=== PATIENT | male | born 1970 | race Caucasian/White ===

== ENCOUNTER 2016-06-30 06:06 | Inpatient (IN) | payer MEDICARE, OTHER ==
[2016-06-30] VITALS (24 sets, daily range): BP systolic 126–238; BP diastolic 64–133; PULSE 60–87; RESP 16–20; TEMP 97.8–98; O2SAT 79–100
[~2016-06-30 06:06] MED LIST: ASPI81TA82 PO; CARD4TAB2 PO; DAPS100 PO; GABA300C3 PO; HYDR10TA23 PO; METO100T PO; MYCO360 PO; PRED5SOL PO; PROT40TA PO; REQU3TAB PO; SIMV10 PO; SIRO1 PO; VITATAB25 PO
[2016-06-30] MEDS ORDERED: ETOMIDATE 40 MG/20 ML VIAL ONE (06:08)
[2016-06-30] MEDS ORDERED: NITROGLYCERIN-DEXTROSE INJ 250 ML ONE (06:16)
[2016-06-30] MEDS ORDERED: PROPOFOL 1000 MG/100 ML INJ 100 ML ONE (06:20)
[2016-06-30] MEDS ORDERED: PROPOFOL 1000 MG/100 ML INJ 100 ML IV SCH ×2 (06:30→11:00)
[2016-06-30] MEDS ORDERED: ETOMIDATE 40 MG/20 ML VIAL IV PUSH ONE (06:30)
[2016-06-30] MEDS ORDERED: ROCURONIUM INJ 100 MG/10 ML VIAL IV ONE (06:30)
[2016-06-30] MEDS ORDERED: SODIUM CHLORIDE 0.9% FLUSH 5 ML FLUSH IVF PRN ×3 (06:30→11:00)
[2016-06-30] MEDS ORDERED: NITROGLYCERIN-DEXTROSE INJ 250 ML IV SCH (06:30)
[2016-06-30 06:52] LABS: AUTOMATED NEUTROPHIL # 10.4 TH/MM3 (1.8-7.7); BASOPHIL % 0.2 % (0.0-2.0); EOSINOPHIL % 7.6 % (0.0-4.0); HEMATOCRIT 29.8 % (39.0-51.0); HEMO FLAGS DIFF FINAL; LYMPH % 6.6 % (9.0-44.0); LYMPHOCYTE # 0.9 TH/MM3 (1.0-4.8); MEAN CELL VOLUME 93.3 FL (80.0-100.0); MEAN CORPUSCULAR HEMOGLOBIN 29.1 PG (27.0-34.0); MEAN CORPUSCULAR HGB CONC 31.2 % (32.0-36.0); MONO % 6.3 % (0.0-8.0); NEUT % 79.3 % (16.0-70.0); PLATELET COUNT 354 TH/MM3 (150-450); RED BLOOD COUNT 3.19 MIL/MM3 (4.50-5.90); RED CELL DISTRIBUTION WIDTH 18.8 % (11.6-17.2); WHITE BLOOD COUNT 13.1 TH/MM3 (4.0-11.0)
[2016-06-30 06:53] LABS: BLOOD GAS BASE EXCESS -9.8 mmol/L (-2-2); BLOOD GAS CARBOXYHEMOGLOBIN 2.9 % (0-4); BLOOD GAS HCO3 18 mmol/L (22-26); BLOOD GAS METHEMOGLOBIN 1.8 % (0-2); BLOOD GAS O2 HGB SATURATION 92 % (90-100); BLOOD GAS OXYGEN CONTENT 12.8 Vol % (12.0-20.0); BLOOD GAS PCO2 54 mmHg (38-42); BLOOD GAS PO2 135 mmHG (61-120); BLOOD GAS TOTAL HGB 9.7 G/DL (12.0-16.0); TEMP CORR TO 98.6
[2016-06-30 06:54] LABS: CRITICAL VALUE YES; DRAW SITE RT FEMORAL; FIO2 100 %; NUMBER OF ARTERIAL PUNCTURES 1; OXYGEN DEVICE VENTILATOR; STAT YES; VENT SETTINGS A/C18/550 8 PEEP
[2016-06-30 07:00] LABS: INTERNATIONAL NORMALIZED RATIO 1.1 RATIO; PROTHROMBIN TIME - PATIENT 11.8 SEC (9.8-11.6)
--- NOTE | 2016-06-30 07:10 | PD ---
HPI Chief Complaint: Respiratory Distress Time Seen by Provider: 06:21 Travel History International Travel<30 days: No Contact w/Intl Traveler<30days: No Traveled to known affect area: No History of Present Illness HPI 46-year-old male came in with severe respiratory distress. Patient is status post renal transplant from hospital in [place]. When EMS arrived patient was in severe respiratory distress saturating in the low 80s. He was put on nonrebreather that improved his saturation for a little bit till his ventilation started to worsen and they put him on BiPAP. By the time patient arrived in the ER he was poorly responsive and labored breathing. Blood pressure was 230/115. He had received sublingual nitroglycerin 1 by EMS. [facility] Past Medical History Narrative Medical List of his past medical history reviewed from the nursing note. Arthritis: Yes Asthma: No Autoimmune Disease: No Anxiety: No Depression: No Heart Rhythm Problems: No Cancer: No Cardiovascular Problems: Yes Chest Pain: Yes Congestive Heart Failure: No COPD: No Cerebrovascular Accident: No Diabetes: Yes (HX OF, BEFORE PANCREATIC TRANSPLANT IN September,) Patient Takes Glucophage: No Diminished Hearing: No Endocrine: No Gastrointestinal Disorders: Yes (REFLUX) GERD: Yes Genitourinary: No Headaches: Yes (NOT OFTEN) Hepatitis: No Hiatal Hernia: No Hypertension: Yes Immune Disorder: No Kidney Stones: No Musculoskeletal: Yes (RESTLESS LEG SYNDROME) Neurologic: No Psychiatric: No Reproductive: Yes (LOW TESTOSTERONE) Respiratory: No Immunizations Current: No Migraines: No Renal Failure: Yes (HX OF; KIDNEY TRANSPLANT IN September,) Seizures: No Sleep Apnea: No Thyroid Disease: No Ulcer: No Tetanus Vaccination: < 5 Years Influenza Vaccination: Yes Past Surgical History Abdominal Surgery: Yes (PANCREAS TRANSPLANT, KIDNEY TRANSPLANT) AICD: No Body Medical Devices: PERITONEAL DIALYSIS CATHETER Joint Replacement: No Pacemaker: No Thoracic Surgery: Yes (PERITONEAL DIALYSIS CATHETER; FISTULA RT ARM) Other Surgery: Yes (TUBE PLACEMENT FOR PERITITONEAL DIALYSIS) Social History Alcohol Use: No Tobacco Use: Yes (1/2 PPD) Substance Use: No Allergies-Medications (Allergen,Severity, Reaction): Coded Allergies: No Known Allergies (Unverified , 08/01/15) Comments No known drug allergies. Reported Meds & Prescriptions Reported Meds & Active Scripts Active Reported Requip (Ropinirole) 3 Mg Tab 9 Mg PO HS Renagel (Sevelamer HCl) 800 Mg Tab 800 Mg PO TID Drisdol (Ergocalciferol) 50,000 Unit Cap 50,000 Units PO Q7D Dapsone 100 Mg Tab 100 Mg PO WEEKLY Cardura (Doxazosin Mesylate) 4 Mg Tab 4 Mg PO BID Gabapentin 300 Mg Cap 300 Mg PO HS Hydralazine (Hydralazine HCl) 100 Mg Tab 100 Mg PO TID Take with meals Metoprolol Tartrate 100 Mg Tab 100 Mg PO BID Myfortic (Mycophenolate Sodium) 360 Mg Tab 360 Mg PO BID Pantoprazole (Pantoprazole Sodium) 40 Mg Tab 40 Mg PO DAILY Prednisone 5 Mg Tab 5 Mg PO DAILY @ 0800 Zocor (Simvastatin) 10 Mg Tab 10 Mg PO HS Prograf (Tacrolimus) 1 Mg Cap 3 Mg PO DAILY @ 2000 Prograf (Tacrolimus) 1 Mg Cap 2 Mg PO DAILY @ 0800 Valganciclovir 450 Mg Tab 450 Mg PO MOWEFR Tylenol-Codeine #3 (Acetaminophen-Codeine) 300-30 mg Tab 1-2 Tab PO Q4-6H PRN Clonidine (Clonidine HCl) 0.3 Mg Tab 0.3 Mg PO BID Narrative Medication List of his home medications reviewed from the nursing note. Review of Systems Except as stated in HPI: all other systems reviewed are Neg Physical Exam Narrative GENERAL: Poorly responsive, severe respiratory distress SKIN: Warm and dry. HEAD: Atraumatic. Normocephalic. EYES: Pupils equal and round. No scleral icterus. No injection or drainage. ENT: No nasal bleeding or discharge. Mucous membranes pink and moist. NECK: Trachea midline. Positive JVD. CARDIOVASCULAR: Regular rate and rhythm. No murmur appreciated. RESPIRATORY: Severe respiratory distress, accessory muscles used, decreased air entry bilaterally GASTROINTESTINAL: Abdomen soft, non-tender, nondistended. Hepatic and splenic margins not palpable. MUSCULOSKELETAL: No obvious deformities. No clubbing. No cyanosis. No edema. NEUROLOGICAL: Poorly responsive. No obvious cranial nerve deficits. Motor grossly within normal limits. Normal speech. PSYCHIATRIC: Unable to assess Data Data Last Documented VS Vital Signs Date Time Temp Pulse Resp B/P Pulse Ox O2 Delivery O2 Flow Rate FiO2 06/30/16 08:17 64 18 191/92 100 Ventilator 80 06/30/16 06:41 97.9 Orders Etomidate Inj (Amidate Inj) (06/30/16 06:08) Nitroglycerin-Dextrose Inj (Nitroglyceri (06/30/16 06:16) Propofol 1000 Mg/100 Ml Inj (Diprivan 10 (06/30/16 06:20) Electrocardiogram (06/30/16 06:21) Complete Blood Count With Diff (06/30/16 06:21) Comprehensive Metabolic Panel (06/30/16 06:21) Creatine Kinase (Cpk) (06/30/16 06:21) Prothrombin Time / Inr (Pt) (06/30/16 06:21) Troponin I (06/30/16 06:21) Urinalysis - C+S If Indicated (06/30/16 06:21) Arterial Blood Gas (Abg) (06/30/16 06:21) Chest, Single Ap (06/30/16 06:21) Ct Brain W/O Iv Contrast(Rout) (06/30/16 06:21) Blood Glucose (06/30/16 06:21) Ecg Monitoring (06/30/16 06:21) Iv Access Insert/Monitor (06/30/16 06:21) Oximetry (06/30/16 06:21) Sodium Chloride 0.9% Flush (Ns Flush) (06/30/16 06:30) B-Type Natriuretic Peptide (06/30/16 06:21) Rocuronium Inj (Zemuron Inj) (06/30/16 06:30) Etomidate Inj (Amidate Inj) (06/30/16 06:30) Propofol 1000 Mg/100 Ml Inj (Diprivan 10 (06/30/16 06:30) ^ Infusion (06/30/16 06:21) RASS (06/30/16 06:21) Neurological Rass Scale ZAYNAB.Q2H (06/30/16 06:21) Nitroglycerin-Dextrose Inj (Nitroglyceri (06/30/16 06:30) Sodium Chlor 0.9% 1000 Ml Inj (Ns 1000 M (06/30/16 07:21) Type And Screen (06/30/16 06:21) Lactic Acid (06/30/16 08:23) Admit Order (Ed Use Only) (06/30/16 08:30) Labs Laboratory Tests Test 06/30/16 06/30/16 06:39 06:45 White Blood Count 13.1 TH/MM3 Red Blood Count 3.19 MIL/MM3 Hemoglobin 9.3 GM/DL Hematocrit 29.8 % Mean Corpuscular Volume 93.3 FL Mean Corpuscular Hemoglobin 29.1 PG Mean Corpuscular Hemoglobin 31.2 % Concent Red Cell Distribution Width 18.8 % Platelet Count 354 TH/MM3 Mean Platelet Volume 9.0 FL Neutrophils (%) (Auto) 79.3 % Lymphocytes (%) (Auto) 6.6 % Monocytes (%) (Auto) 6.3 % Eosinophils (%) (Auto) 7.6 % Basophils (%) (Auto) 0.2 % Neutrophils # (Auto) 10.4 TH/MM3 Lymphocytes # (Auto) 0.9 TH/MM3 Monocytes # (Auto) 0.8 TH/MM3 Eosinophils # (Auto) 1.0 TH/MM3 Basophils # (Auto) 0.0 TH/MM3 CBC Comment DIFF FINAL Differential Comment Prothrombin Time 11.8 SEC Prothromb Time International 1.1 RATIO Ratio Sodium Level 142 MEQ/L Potassium Level 5.4 MEQ/L Chloride Level 111 MEQ/L Carbon Dioxide Level 15.1 MEQ/L Anion Gap 16 MEQ/L Blood Urea Nitrogen 53 MG/DL Creatinine 7.36 MG/DL Estimat Glomerular Filtration 8 ML/MIN Rate Random Glucose 138 MG/DL Calcium Level 6.9 MG/DL Protein Corrected Calcium 7.6 MG/DL Total Bilirubin 0.4 MG/DL Aspartate Amino Transf 70 U/L (AST/SGOT) Alanine Aminotransferase 56 U/L (ALT/SGPT) Alkaline Phosphatase 248 U/L Total Creatine Kinase 100 U/L Troponin I 0.03 NG/ML B-Type Natriuretic Peptide 3140 PG/ML Total Protein 5.7 GM/DL Albumin 2.7 GM/DL Blood Type B POSITIVE Antibody Screen NEGATIVE Blood Gas Puncture Site RT FEMORAL Blood Gas Patient Temperature 98.6 Blood Gas HCO3 18 mmol/L Blood Gas Base Excess -9.8 mmol/L Blood Gas Oxygen Saturation 92 % Arterial Blood pH 7.14 Arterial Blood Partial 54 mmHg Pressure CO2 Arterial Blood Partial 135 mmHG Pressure O2 Arterial Blood Oxygen Content 12.8 Vol % Arterial Blood 2.9 % Carboxyhemoglobin Arterial Blood Methemoglobin 1.8 % Blood Gas Hemoglobin 9.7 G/DL Oxygen Delivery Device VENTILATOR Blood Gas Ventilator Setting A/C18/550 8 PEEP Blood Gas Inspired Oxygen 100 % MDM Medical Decision Making Medical Screen Exam Complete: Yes Emergency Medical Condition: Yes Medical Record Reviewed: Yes Interpretation(s) Twelve-lead EKG was reviewed by me. Normal sinus rhythm, normal axis, nonspecific ST-T wave changes. Heart rate of 86 bpm. Differential Diagnosis Flash Pulmonary edema, pneumonia, pleural effusion Narrative Course 7:08 AM awaiting for the blood test results and x-rays. Patient was intubated upon arrival given his severe respiratory distress. Given the possibility of renal failure vecuronium was used as a paralytic for the RSI. Frothing was noted in the mouth and through the glottic opening. He was started on propofol drip and nitro drip. The nurse was unable to put a Martinez catheter. Chest x- ray shows significant pulmonary edema. 7:46 AM I tried calling [facility] transplant service and I was asked by the answering nutrition services associate the name of the surgeon. There is no mention of the surgeon's name in patient's folder that came with him. I was asked to call after 9 AM since this when the offices open and they'll be able to find the patient in their records. Meanwhile I spoke with our rn er. Awaiting for the chemistry results to come back. Patient was signed over to the oncoming ER physician. Critical Care Narrative Aggregate critical care time was 45 minutes. Time to perform other separately billable procedures was not included in the critical care time. My time did not include minutes spent treating any other patients simultaneously or on activities that did not directly contribute to the patient's treatment. The services I provided to this patient were to treat and/or prevent clinically significant deterioration that could result in: Respiratory failure, ventilator management I provided critical care services requiring my management, as noted below: Chart data review, documentation time, medication orders and management, vital sign assessments/reviewing monitor data, ordering and reviewing lab tests, ordering and interpreting/reviewing x-rays and diagnostic studies, care of the patient and discussion of the patient with the admitting physicians. Procedures Procedure Narrative After the risks and benefits were discussed the following procedure was performed: INTUBATION: The patient was put in optimal position for the procedure. Rapid sequence intubation was initiated by me using 40 milligrams of etomidate IV and 100 milligrams of rocuronium IV. The patient was intubated with a 7.5 cuffed endotracheal tube. Tube placement was confirmed by visualization of the tube and balloon passing through the cords, capnometry and subsequent chest x-ray. Breath sounds were equal and well aerated bilaterally postintubation. No breath sounds over stomach. Patient tolerated procedure well. EKG Prior to Arrival: No Diagnosis Primary Impression: Flash pulmonary edema Additional Impressions: Respiratory failure Qualified Code: J96.01 - Acute respiratory failure with hypoxia Status post kidney transplant Admitting Information Admitting Physician Requests: Admit Treasure Mccullough MD Jun 30, 2016 07:10
--- NOTE | 2016-06-30 07:14 | RADRPT ---
EXAM DATE/TIME: 06/30/2016 06:55 [facility] COMPARISON: CHEST SINGLE AP, November 21, 2013, 14:10. INDICATIONS : ET and OG tube placement. MEDICAL HISTORY : Renal failure, chronic. SURGICAL HISTORY : Kidney and pancreas transplant. ENCOUNTER: Initial ACUITY: 1 day PAIN SCORE: Non-responsive. LOCATION: Bilateral chest FINDINGS: A single view of the chest demonstrates the interval placement of the endotracheal tube and nasogastr ic tube. There is diffuse perihilar vascular congestion. The cardiomediastinal contours are unremark able. Osseous structures are intact. CONCLUSION: Perihilar vascular congestion. Endotracheal tube and nasogastric tube in good position Naresh Londono MD on June 30, 2016 at 7:12 Board Certified Radiologist. This report was verified electronically.
[2016-06-30 07:22] LABS: BICARBONATE 15.1 MEQ/L (21.0-32.0); CALCIUM-PROTEIN CORRECTED 7.6 MG/DL (8.5-10.1); POTASSIUM 5.4 MEQ/L (3.5-5.1); TOTAL BILIRUBIN ADULT 0.4 MG/DL (0.2-1.0)
[2016-06-30] MEDS: SODIUM CHLOR 0.9% 1000 ML INJ 1,000 ML IV SCH (08:20)
--- NOTE | 2016-06-30 08:26 | RADRPT ---
EXAM DATE/TIME: 06/30/2016 07:56 [facility] COMPARISON: CT BRAIN W/O CONTRAST, April 03, 2013, 18:28. INDICATIONS : Altered mental status RADIATION DOSE: 52.21 CTDIvol (mGy) MEDICAL HISTORY : Cardiovascular disease. Diabetes mellitus type 1. SURGICAL HISTORY : renal transplant ENCOUNTER: Initial ACUITY: 1 day PAIN SCALE: Non-responsive LOCATION: cranial TECHNIQUE: Multiple contiguous axial images were obtained of the head. Using automated exposure control and adjustment of the mA and/or kV according to patient size, radiation dose was kept as low as reasonably achievable to obtain optimal diagnostic quality images. FINDINGS: CEREBRUM: The ventricles are normal for age. No evidence of midline shift, mass lesion, hemorrha ge or acute infarction. No extra-axial fluid collections are seen. POSTERIOR FOSSA: The cerebellum and brainstem are intact. The 4th ventricle is midline. The cer ebellopontine angle is unremarkable. EXTRACRANIAL: The visualized portion of the orbits is intact. SKULL: The calvaria is intact. No evidence of skull fracture. CONCLUSION: Negative for an acute process. Garcia Jerome MD FACR on June 30, 2016 at 8:23 Board Certified Radiologist. This report was verified electronically.
--- NOTE | 2016-06-30 10:09 | EKG ---
Date Performed: 06/30/2016 Time Performed: 06:27:36 PTAGE: 46 years EKG: Sinus rhythm POSSIBLE LEFT ATRIAL ENLARGEMENT LOW QRS VOLTAGE IN EXTREMITY LEADS NONSPECIFIC T-WAVE ABNORMALITY B ORDERLINE ECG NO PREVIOUS TRACING DOCTOR: Naresh Markham Interpretating Date/Time 06/30/2016 10:07:55
--- NOTE | 2016-06-30 10:45 | PD ---
Data Data Last Documented VS Vital Signs Date Time Temp Pulse Resp B/P Pulse Ox O2 Delivery O2 Flow Rate FiO2 06/30/16 08:17 64 18 191/92 100 Ventilator 80 06/30/16 06:41 97.9 Orders Etomidate Inj (Amidate Inj) (06/30/16 06:08) Nitroglycerin-Dextrose Inj (Nitroglyceri (06/30/16 06:16) Propofol 1000 Mg/100 Ml Inj (Diprivan 10 (06/30/16 06:20) Electrocardiogram (06/30/16 06:21) Complete Blood Count With Diff (06/30/16 06:21) Comprehensive Metabolic Panel (06/30/16 06:21) Creatine Kinase (Cpk) (06/30/16 06:21) Drug Screen, Random Urine (06/30/16 06:21) Prothrombin Time / Inr (Pt) (06/30/16 06:21) Troponin I (06/30/16 06:21) Urinalysis - C+S If Indicated (06/30/16 06:21) Arterial Blood Gas (Abg) (06/30/16 06:21) Chest, Single Ap (06/30/16 06:21) Ct Brain W/O Iv Contrast(Rout) (06/30/16 06:21) Blood Glucose (06/30/16 06:21) Ecg Monitoring (06/30/16 06:21) Iv Access Insert/Monitor (06/30/16 06:21) Oximetry (06/30/16 06:21) Sodium Chloride 0.9% Flush (Ns Flush) (06/30/16 06:30) B-Type Natriuretic Peptide (06/30/16 06:21) Rocuronium Inj (Zemuron Inj) (06/30/16 06:30) Etomidate Inj (Amidate Inj) (06/30/16 06:30) Propofol 1000 Mg/100 Ml Inj (Diprivan 10 (06/30/16 06:30) ^ Infusion (06/30/16 06:21) RASS (06/30/16 06:21) Neurological Rass Scale ZAYNAB.Q2H (06/30/16 06:21) Nitroglycerin-Dextrose Inj (Nitroglyceri (06/30/16 06:30) Sodium Chlor 0.9% 1000 Ml Inj (Ns 1000 M (06/30/16 07:21) Type And Screen (06/30/16 06:21) Drug Screen, Random Urine (06/30/16 06:26) Lactic Acid (06/30/16 08:23) Admit Order (Ed Use Only) (06/30/16 08:30) Labs Laboratory Tests Test 06/30/16 06/30/16 06:39 06:45 White Blood Count 13.1 TH/MM3 Red Blood Count 3.19 MIL/MM3 Hemoglobin 9.3 GM/DL Hematocrit 29.8 % Mean Corpuscular Volume 93.3 FL Mean Corpuscular Hemoglobin 29.1 PG Mean Corpuscular Hemoglobin 31.2 % Concent Red Cell Distribution Width 18.8 % Platelet Count 354 TH/MM3 Mean Platelet Volume 9.0 FL Neutrophils (%) (Auto) 79.3 % Lymphocytes (%) (Auto) 6.6 % Monocytes (%) (Auto) 6.3 % Eosinophils (%) (Auto) 7.6 % Basophils (%) (Auto) 0.2 % Neutrophils # (Auto) 10.4 TH/MM3 Lymphocytes # (Auto) 0.9 TH/MM3 Monocytes # (Auto) 0.8 TH/MM3 Eosinophils # (Auto) 1.0 TH/MM3 Basophils # (Auto) 0.0 TH/MM3 CBC Comment DIFF FINAL Differential Comment Prothrombin Time 11.8 SEC Prothromb Time International 1.1 RATIO Ratio Sodium Level 142 MEQ/L Potassium Level 5.4 MEQ/L Chloride Level 111 MEQ/L Carbon Dioxide Level 15.1 MEQ/L Anion Gap 16 MEQ/L Blood Urea Nitrogen 53 MG/DL Creatinine 7.36 MG/DL Estimat Glomerular Filtration 8 ML/MIN Rate Random Glucose 138 MG/DL Calcium Level 6.9 MG/DL Protein Corrected Calcium 7.6 MG/DL Total Bilirubin 0.4 MG/DL Aspartate Amino Transf 70 U/L (AST/SGOT) Alanine Aminotransferase 56 U/L (ALT/SGPT) Alkaline Phosphatase 248 U/L Total Creatine Kinase 100 U/L Troponin I 0.03 NG/ML B-Type Natriuretic Peptide 3140 PG/ML Total Protein 5.7 GM/DL Albumin 2.7 GM/DL Blood Type B POSITIVE Antibody Screen NEGATIVE Blood Gas Puncture Site RT FEMORAL Blood Gas Patient Temperature 98.6 Blood Gas HCO3 18 mmol/L Blood Gas Base Excess -9.8 mmol/L Blood Gas Oxygen Saturation 92 % Arterial Blood pH 7.14 Arterial Blood Partial 54 mmHg Pressure CO2 Arterial Blood Partial 135 mmHG Pressure O2 Arterial Blood Oxygen Content 12.8 Vol % Arterial Blood 2.9 % Carboxyhemoglobin Arterial Blood Methemoglobin 1.8 % Blood Gas Hemoglobin 9.7 G/DL Oxygen Delivery Device VENTILATOR Blood Gas Ventilator Setting A/C18/550 8 PEEP Blood Gas Inspired Oxygen 100 % MDM Supervised Visit with LOIS: No Narrative Course This is a 46-year-old male who has a history of the pancreas transplant 2014 and a recent transplant nephrectomy at the end of April at [facility] who presents to the emergency department in respiratory distress. He was intubated by Dr. Mccullough for respiratory failure. Chest x-ray demonstrates pulmonary congestion, BNP is elevated and the patient was quite hypertensive on arrival consistent with hypertensive emergency and volume overload. His presented later and gave the history that the patient has not receive dialysis in a week because he didn't want to go due to his restless leg syndrome. Dr. Maritza brand is benefits technician. I did speak to the transplant team at [facility]. I spoke to Dr. Rodas. Given the patient has no active transplant issues and his presentation today is likely due to dialysis noncompliance, they think it's reasonable that he be admitted here at [place] and he doesn't require transfer at this time. Patient will be admitted to Dr. Morfin in the intensive care unit. Critical Care Narrative Aggregate critical care time was 45 minutes. Time to perform other separately billable procedures was not included in the critical care time. My time did not include minutes spent treating any other patients simultaneously or on activities that did not directly contribute to the patient's treatment. The services I provided to this patient were to treat and/or prevent clinically significant deterioration that could result in: Disability, I provided critical care services requiring my management, as noted below: Chart data review, documentation time, medication orders and management, vital sign assessments/reviewing monitor data, ordering and reviewing lab tests, ordering and interpreting/reviewing x-rays and diagnostic studies, care of the patient and discussion of the patient with the admitting physicians. Physician Communication Physician Communication Discussed with Dr. Morfin, Dr. Ring and Dr. Rodas at [facility] Diagnosis Primary Impression: Flash pulmonary edema Additional Impression: Respiratory failure Qualified Code: J96.01 - Acute respiratory failure with hypoxia Admitting Information Admitting Physician Requests: Admit Ivanna Kim MD Jun 30, 2016 10:45
[2016-06-30] MEDS ORDERED: SODIUM CHLOR 0.9% 1000 ML INJ 1,000 ML IV PRN ×3 (10:50)
[2016-06-30] MEDS ORDERED: CLON0.3T PO (10:59)
[2016-06-30] MEDS ORDERED: TYLETAB34 PO (10:59)
[2016-06-30] MEDS ORDERED: oxyCODONE/ACETAMINOPHEN 5 MG/325 MG TAB PO PRN (11:00)
[2016-06-30] MEDS ORDERED: ALBUMIN HUMAN 25% 25 GM/100 ML BAGP IV PRN (11:00)
[2016-06-30] MEDS ORDERED: CHLORHEXIDINE GLUCONATE 2 % 1 PACK (2 CLOTHS) TOP PRN (11:00)
[2016-06-30] MEDS ORDERED: ONDANSETRON HCL 4 MG/2 ML VIAL IV PRN (11:00)
[2016-06-30] MEDS ORDERED: ACETAMINOPHEN 325 MG TAB PO PRN ×2 (11:00)
[2016-06-30] MEDS ORDERED: MISCELLANEOUS NURSING INFORMATION XX SCH (11:00)
[2016-06-30] MEDS ORDERED: cloNIDine HCL 0.1 MG TAB PO PRN (11:00)
[2016-06-30] MEDS ORDERED: EPOETIN ALFA 10,000 UNITS/ML VIAL IV PRN (11:00)
[2016-06-30] MEDS ORDERED: HEPARIN SODIUM - IV 10,000 UNITS/10 ML VIAL IVF PRN (11:00)
[2016-06-30] MEDS ORDERED: NITROGLYCERIN 0.4 MG SL 25 TABS/BTL SL PRN (11:00)
[2016-06-30] MEDS ORDERED: MANNITOL 12.5 GM/50 ML VIAL IV PRN (11:00)
[2016-06-30] MEDS ORDERED: diphenhydrAMINE HCL 25 MG CAP PO PRN (11:00)
[2016-06-30] MEDS ORDERED: MORPHINE SULFATE 4 MG/ML INJ IV PRN (11:00)
[2016-06-30] MEDS ORDERED: RESP: ALBUTEROL 2.5 MG/IPRATROPIUM 0.5 MG NEB (PRN) INH (11:00)
--- NOTE | 2016-06-30 11:06 | PD.CONS ---
HPI Service Nephrology Consult Requested By Dr. 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 The patient came in with the acute shortness of breath and required intubation he is on ventilator in the, he is on nitrite as blood pressure was high and he was in hypertensive crisis. 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 in [place] Hypertension Restless leg History of hematuria Post kidney transplant and removal Anemia Secondary hyperparathyroidism Past Surgical History Simultaneous kidney and pancreas transplant Removal of kidney transplant AV fistula History of peritoneal dialysis Tenckhoff insertion and removal Reported Medications Reported Meds & Active Scripts Active Reported Tylenol-Codeine #3 (Acetaminophen-Codeine) 300-30 mg Tab 1-2 Tab PO Q4-6H PRN Clonidine (Clonidine HCl) 0.3 Mg Tab 0.3 Mg PO BID Active Ordered Medications Current Medications Medications (Trade) Dose Ordered Sig/Rukhsana Route Start Time Stop Time Status Last Admin IV Flush 2 ml 2 ml UNSCH PRN IVF 06/30/16 06:30 Propofol 100 ml @ 0 mls/hr TITRATE IV 06/30/16 06:30 06/30/16 06:50 Nitroglycerin/ Dextrose 250 ml @ 0 mls/hr TITRATE IV 06/30/16 06:30 06/30/16 06:37 (NS 1000 ml Inj) 1,000 ml @ 75 mls/hr [id number] IV 06/30/16 07:21 06/30/16 08:20 Family History Noncontributory Social History He used to smoke cigarettes and denies alcohol use other drug Physical Exam Vital Signs Vital Signs Date Time Temp Pulse Resp B/P Pulse Ox O2 Delivery O2 Flow Rate FiO2 06/30/16 09:13 60 18 126/64 100 Ventilator 80 06/30/16 08:17 64 18 191/92 100 Ventilator 80 06/30/16 07:50 100 06/30/16 07:15 100 80 06/30/16 07:05 71 18 197/112 100 Auto-Vent 06/30/16 06:41 97.9 80 20 238/133 100 Auto-Vent 06/30/16 06:16 87 20 227/114 79 06/30/16 06:15 96 100 Physical Exam GENERAL: Well-nourished, well-developed intubated patient. SKIN: Warm and dry. HEAD: Normocephalic. He is intubated EYES: No scleral icterus. No injection or drainage. NECK: Supple, trachea midline. No JVD or lymphadenopathy. CARDIOVASCULAR: Tachycardic RESPIRATORY: Breath sounds equal ,rales Harsh bilaterally. No accessory muscle use. GASTROINTESTINAL: Abdomen soft, non-tender, nondistended. Surgical scar in the midline which is well-healed. EXTREMITIES: No cyanosis, or edema. NEUROLOGICAL: Sedation Laboratory Laboratory Tests Test 06/30/16 06/30/16 06:39 06:45 White Blood Count 13.1 Red Blood Count 3.19 Hemoglobin 9.3 Hematocrit 29.8 Mean Corpuscular Volume 93.3 Mean Corpuscular Hemoglobin 29.1 Mean Corpuscular Hemoglobin 31.2 Concent Red Cell Distribution Width 18.8 Platelet Count 354 Mean Platelet Volume 9.0 Neutrophils (%) (Auto) 79.3 Lymphocytes (%) (Auto) 6.6 Monocytes (%) (Auto) 6.3 Eosinophils (%) (Auto) 7.6 Basophils (%) (Auto) 0.2 Neutrophils # (Auto) 10.4 Lymphocytes # (Auto) 0.9 Monocytes # (Auto) 0.8 Eosinophils # (Auto) 1.0 Basophils # (Auto) 0.0 CBC Comment DIFF FINAL Differential Comment Prothrombin Time 11.8 Prothromb Time International 1.1 Ratio Sodium Level 142 Potassium Level 5.4 Chloride Level 111 Carbon Dioxide Level 15.1 Anion Gap 16 Blood Urea Nitrogen 53 Creatinine 7.36 Estimat Glomerular Filtration 8 Rate Random Glucose 138 Calcium Level 6.9 Protein Corrected Calcium 7.6 Total Bilirubin 0.4 Aspartate Amino Transf 70 (AST/SGOT) Alanine Aminotransferase 56 (ALT/SGPT) Alkaline Phosphatase 248 Total Creatine Kinase 100 Troponin I 0.03 B-Type Natriuretic Peptide 3140 Total Protein 5.7 Albumin 2.7 Blood Type B POSITIVE Antibody Screen NEGATIVE Blood Gas Puncture Site RT FEMORAL Blood Gas Patient Temperature 98.6 Blood Gas HCO3 18 Blood Gas Base Excess -9.8 Blood Gas Oxygen Saturation 92 Arterial Blood pH 7.14 Arterial Blood Partial 54 Pressure CO2 Arterial Blood Partial 135 Pressure O2 Arterial Blood Oxygen Content 12.8 Arterial Blood 2.9 Carboxyhemoglobin Arterial Blood Methemoglobin 1.8 Blood Gas Hemoglobin 9.7 Oxygen Delivery Device VENTILATOR Blood Gas Ventilator Setting A/C18/550 8 PEEP Blood Gas Inspired Oxygen 100 Result Diagram: 06/30/1663806/30/16638 Imaging Last Impressions Head CT 06/30/16620 Signed Impressions: Service Date/Time: Thursday, June 30, 2016 07:56 - CONCLUSION: Negative for an acute process. Garcia Jerome MD FACR Chest X-Ray 06/30/16620 Signed Impressions: Service Date/Time: Thursday, June 30, 2016 06:55 - CONCLUSION: Perihilar vascular congestion. Endotracheal tube and nasogastric tube in good position Naresh Londono MD Assessment and Plan Problem List: (1) History of simultaneous kidney and pancreas transplant Plan: Patient has received his transplant and he has failed kidney transplant status post removal of the kidney transplant itself and he is on hemodialysis, he has been cutting his treatment short and missing treatments which led to a left fluids and now he is intubated, I spoke to the and she states that he has restless legs. I will arrange for as soon as possible hemodialysis while he is in the hospital get fluid off and try to extubate. (2) ESRD (end stage renal disease) on dialysis Plan: Patient has failed his kidney transplant been back on hemodialysis, he had trouble from the start of his transplant and he required for this peritoneal dialysis and then subsequently went on hemodialysis (3) Flash pulmonary edema Plan: Needs immediate dialysis and I talked to the the staff, physician in the ER (4) Respiratory failure Plan: On ventilator Problem Qualifiers (1) Respiratory failure: Qualified Code: J96.01 - Acute respiratory failure with hypoxia Oxana Salas MD Jun 30, 2016 11:06
[2016-06-30] MEDS ORDERED: PANT40TA3 PO (11:10)
[2016-06-30] MEDS ORDERED: DRIS50002 PO (11:10)
[2016-06-30] MEDS ORDERED: MYCO360 PO (11:10)
[2016-06-30] MEDS ORDERED: METO100T PO (11:10)
[2016-06-30] MEDS ORDERED: ZOCO10TA PO (11:10)
[2016-06-30] MEDS ORDERED: CARD4TAB2 PO (11:10)
[2016-06-30] MEDS ORDERED: PRED5TAB PO (11:10)
[2016-06-30] MEDS ORDERED: HYDR-3801 PO (11:10)
[2016-06-30] MEDS ORDERED: GABA300C5 PO (11:10)
[2016-06-30] MEDS ORDERED: VALG1TAB PO (11:10)
[2016-06-30] MEDS ORDERED: TACR1 PO ×2 (11:10)
[2016-06-30] MEDS ORDERED: DAPS1TAB2 PO (11:10)
[2016-06-30] MEDS ORDERED: SEVE800T PO (11:13)
[2016-06-30] MEDS ORDERED: LABETALOL HCL 100 MG/20 ML VIAL IV PUSH PRN (11:15)
[2016-06-30] MEDS ORDERED: REQU3TAB PO (11:41)
[2016-06-30] MEDS ORDERED: PANTOPRAZOLE SOD 40 MG DELAYED RELEASE TAB PO ONE (12:00)
[2016-06-30] MEDS ORDERED: SEVELAMER CARBONATE 800 MG TAB PO SCH (12:00)
[2016-06-30] MEDS: HEPARIN SODIUM - SQ 10,000 UNITS/ML VIAL SQ SCH (13:08)
[2016-06-30] MEDS ORDERED: cloNIDine HCL 0.3 MG TAB PO SCH (14:00)
[2016-06-30] MEDS: RESP: ALBUTEROL 2.5 MG/IPRATROPIUM 0.5 MG NEB (SCH) NEB ×2 (15:40→21:36)
[2016-06-30] MEDS ORDERED: fentaNYL DRIP 250 ML IV SCH (16:15)
--- NOTE | 2016-06-30 16:27 | HHI.HP ---
HPI Service Critical Care Medicine Primary Care Physician Oxana Salas MD Admission Diagnosis hypertensive emergency, respiratory failure Diagnosis: Chief Complaint: Shortness of breath Travel History International Travel<30 Days: No Contact w/Intl Traveler <30 Da: No Traveled to Known Affected Are: No History of Present Illness History of Present Illness HPI 46-year-old male with a medical history significant for renal/pancreatic transplant in 2014 who underwent removal of his transplanted kidney at [facility] a few months ago as it had never function per Dr. Salas's purchasing assistant. Patient has not been very compliant with his hemodialysis and missed hemodialysis for about 1 week per documentation and was brought to the ER with shortness of breath/severe respiratory distress which required emergent intubation and he was placed on mechanical ventilation. He had a systolic blood pressure of 230s on arrival in the ER and was given nitroglycerin x 1. Chest x-ray revealed pulmonary edema. He was accepted for admission by critical care medicine service. He has already been evaluated by Dr. Salas's purchasing assistant was arranged for emergent hemodialysis today in the ER. When I evaluated the patient earlier he was sedated with propofol him arousable, orally intubated on mechanical ventilation. He has an AV fistula in his right forearm for dialysis. [facility] Past Medical History Narrative Medical List of his past medical history reviewed from the nursing note. Arthritis: Yes Asthma: No Autoimmune Disease: No Anxiety: No Depression: No Heart Rhythm Problems: No Cancer: No Cardiovascular Problems: Yes Chest Pain: Yes Congestive Heart Failure: No COPD: No Cerebrovascular Accident: No Diabetes: Yes (HX OF, BEFORE PANCREATIC TRANSPLANT IN September,) Patient Takes Glucophage: No Diminished Hearing: No Endocrine: No Gastrointestinal Disorders: Yes (REFLUX) GERD: Yes Genitourinary: No Headaches: Yes (NOT OFTEN) Hepatitis: No Hiatal Hernia: No Hypertension: Yes Immune Disorder: No Kidney Stones: No Musculoskeletal: Yes (RESTLESS LEG SYNDROME) Neurologic: No Psychiatric: No Reproductive: Yes (LOW TESTOSTERONE) Respiratory: No Immunizations Current: No Migraines: No Renal Failure: Yes (HX OF; KIDNEY TRANSPLANT IN September,) Seizures: No Sleep Apnea: No Thyroid Disease: No Ulcer: No Tetanus Vaccination: < 5 Years Influenza Vaccination: Yes Past Surgical History Abdominal Surgery: Yes (PANCREAS TRANSPLANT, KIDNEY TRANSPLANT) AICD: No Body Medical Devices: PERITONEAL DIALYSIS CATHETER Joint Replacement: No Pacemaker: No Thoracic Surgery: Yes (PERITONEAL DIALYSIS CATHETER; FISTULA RT ARM) Other Surgery: Yes (TUBE PLACEMENT FOR PERITITONEAL DIALYSIS) Social History Alcohol Use: No Tobacco Use: Yes (06/28 PPD) Substance Use: No Allergies-Medications (Allergen,Severity, Reaction): Coded Allergies: No Known Allergies (Unverified , 08/01/15) Comments No known drug allergies. Reported Meds & Prescriptions Reported Meds & Active Scripts Active Reported Rapamune 1 mg (Sirolimus) 1 Mg Tab 2 Tab PO DAILY Rapamune 1 mg (Sirolimus) 1 Mg Tab 3 Tab PO DAILY Simvastatin 10 mg (Simvastatin) 10 Mg Tab 1 Tab PO HS Cardura 4 mg (Doxazosin Mesylate) 4 Mg Tab 1 Tab PO DAILY Gabapentin 300 Mg Cap 300 Mg PO DAILY Requip 3 mg (ROPINIROLE HYDROCHLORIDE 3 mg) 3 Mg Tab 1 Tab PO HS Vitamin D-1000 (Cholecalciferol) 1,000 Unit Tab 1,000 Unit PO WEEKLY Protonix (Pantoprazole Sodium) 40 Mg Tabdr 40 Mg PO DAILY Dapsone 100 mg (Dapsone) 100 Mg Tab 1 Tab PO WEEKLY Aspir-81 (Aspirin) 81 Mg Tab 81 Mg PO DAILY Myfortic (Mycophenolate Sodium) 360 Mg Tab 360 Mg PO BID Prednisone 5 Mg/5 Ml Swapna 5 Mg PO DAILY Hydralazine HCl 10 Mg Tab 10 Mg PO TID Metoprolol Tartrate 100 mg (Metoprolol Tartrate) 100 Mg Tab 100 Mg PO BID Review of Systems ROS Limitations: Intubated Physical Exam Vital Signs Vital Signs Date Time Temp Pulse Resp B/P Pulse Ox O2 Delivery O2 Flow Rate FiO2 06/30/16 15:40 100 50 06/30/16 14:43 64 18 174/85 100 Ventilator 50 06/30/16 12:21 63 18 165/84 99 Ventilator 50 06/30/16 11:20 62 16 167/87 99 Ventilator 50 06/30/16 11:01 100 80 06/30/16 11:00 64 16 162/83 100 Ventilator 50 06/30/16 09:45 62 16 172/85 100 Ventilator 80 06/30/16 09:13 60 18 126/64 100 Ventilator 80 06/30/16 08:17 64 18 191/92 100 Ventilator 80 06/30/16 07:50 100 06/30/16 07:15 100 80 06/30/16 07:05 71 18 197/112 100 Auto-Vent 06/30/16 06:41 97.9 80 20 238/133 100 Auto-Vent 06/30/16 06:16 87 20 227/114 79 06/30/16 06:15 96 100 Physical Exam HEENT/ Neuro: Sedated, orally intubated, Pallor present, no icterus, tongue/ mucosa moist Neck: No JVD Chest/Pulm: on mech vent, good air entry bilaterally, bilateral crackles, no wheezing. CVS: S1-S2 regular, no murmur GI/abdomen: soft, nontender, bowel sounds sluggish. Healed surgical scar noted. Extremities: warm bilaterally, bilateral edema Laboratory Laboratory Tests Test 06/30/16 06/30/16 06:39 06:45 White Blood Count 13.1 Red Blood Count 3.19 Hemoglobin 9.3 Hematocrit 29.8 Mean Corpuscular Volume 93.3 Mean Corpuscular Hemoglobin 29.1 Mean Corpuscular Hemoglobin 31.2 Concent Red Cell Distribution Width 18.8 Platelet Count 354 Mean Platelet Volume 9.0 Neutrophils (%) (Auto) 79.3 Lymphocytes (%) (Auto) 6.6 Monocytes (%) (Auto) 6.3 Eosinophils (%) (Auto) 7.6 Basophils (%) (Auto) 0.2 Neutrophils # (Auto) 10.4 Lymphocytes # (Auto) 0.9 Monocytes # (Auto) 0.8 Eosinophils # (Auto) 1.0 Basophils # (Auto) 0.0 CBC Comment DIFF FINAL Differential Comment Prothrombin Time 11.8 Prothromb Time International 1.1 Ratio Sodium Level 142 Potassium Level 5.4 Chloride Level 111 Carbon Dioxide Level 15.1 Anion Gap 16 Blood Urea Nitrogen 53 Creatinine 7.36 Estimat Glomerular Filtration 8 Rate Random Glucose 138 Calcium Level 6.9 Protein Corrected Calcium 7.6 Total Bilirubin 0.4 Aspartate Amino Transf 70 (AST/SGOT) Alanine Aminotransferase 56 (ALT/SGPT) Alkaline Phosphatase 248 Total Creatine Kinase 100 Troponin I 0.03 B-Type Natriuretic Peptide 3140 Total Protein 5.7 Albumin 2.7 Blood Type B POSITIVE Antibody Screen NEGATIVE Blood Gas Puncture Site RT FEMORAL Blood Gas Patient Temperature 98.6 Blood Gas HCO3 18 Blood Gas Base Excess -9.8 Blood Gas Oxygen Saturation 92 Arterial Blood pH 7.14 Arterial Blood Partial 54 Pressure CO2 Arterial Blood Partial 135 Pressure O2 Arterial Blood Oxygen Content 12.8 Arterial Blood 2.9 Carboxyhemoglobin Arterial Blood Methemoglobin 1.8 Blood Gas Hemoglobin 9.7 Oxygen Delivery Device VENTILATOR Blood Gas Ventilator Setting A/C18/550 8 PEEP Blood Gas Inspired Oxygen 100 Result Diagram: 06/30/16 0639 06/30/16638 Imaging Last Impressions Head CT 06/30/16620 Signed Impressions: Service Date/Time: Thursday, June 30, 2016 07:56 - CONCLUSION: Negative for an acute process. Garcia Jerome MD FACR Chest X-Ray 06/30/16620 Signed Impressions: Service Date/Time: Thursday, June 30, 2016 06:55 - CONCLUSION: Perihilar vascular congestion. 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 Daily sedation vacation. Follow neuro status. Cardiovascular: Labetalol when necessary for hypertension. Emergent hemodialysis for fluid removal. Pulmonary: Continue mechanical ventilation. Vent bundle, bronchodilators as needed. Daily C Pap trials to decide extubation following fluid removal with hemodialysis. GI/liver: Nothing by mouth for now. If not extubated by tomorrow we'll initiate tube feeds. Renal/: Hemodialysis per nephrology. Dr. Salas from nephrology consulted and following. Continue immunosuppressive's per nephrology. Endocrine: SSI for glycemic control Heme: Follow CBC ID: No antibiotics at this time Prophylaxis: PPI/SCDs/subcutaneous heparin Condition critical Discussed with Dr. Salas/discussed with ER physician Time spent on critical care excluding procedures 70 minutes Mitch Leiva MD Jun 30, 2016 16:27
[2016-06-30] MEDS ORDERED: GLUCAGON 1 MG/ML VIAL IM/SQ PRN (16:30)
[2016-06-30] MEDS ORDERED: fentaNYL DRIP 250 ML ONE (16:36)
[2016-06-30] MEDS ORDERED: PILL SPLITTER OTHER PRN (17:30)
[2016-06-30] MEDS: LORazepam 2 MG/ML VIAL IVP PRN (17:40)
[2016-06-30] MEDS ORDERED: MYCOPHENOLATE SODIUM 360 MG DELAYED RELEASE TAB PO SCH (18:00)
[2016-06-30] MEDS: MYCOPHENOLATE SODIUM 360 MG DELAYED RELEASE TAB PO SCH (20:27)
[2016-06-30] MEDS: DOXAZOSIN MESYLATE 4 MG TAB PO SCH (20:28)
[2016-06-30] MEDS: cloNIDine HCL 0.3 MG TAB PO SCH (20:28)
[2016-06-30] MEDS: METOPROLOL TARTRATE 100 MG TAB PO SCH (20:35)
[2016-06-30] MEDS: GABAPENTIN 300 MG CAP PO SCH (20:35)
[2016-06-30] MEDS: ATORVASTATIN 20 MG TAB PO SCH (20:35)
[2016-06-30] MEDS: hydrALAZINE HCL 100 MG TAB PO SCH (20:40)
[2016-06-30] MEDS: TACROLIMUS 0.5 MG CAP PO SCH (20:40)
[2016-06-30] MEDS: SEVELAMER CARBONATE 800 MG TAB PO SCH (20:40)
[2016-06-30] MEDS ORDERED: DOXAZOSIN MESYLATE 4 MG TAB PO SCH (21:00)
[2016-07-01] VITALS (15 sets, daily range): BP systolic 116–178; BP diastolic 46–91; PULSE 78–173; RESP 16–22; TEMP 97.9–101.4; O2SAT 93–99
[2016-07-01] MEDS: CHLORHEXIDINE 0.12% (ORAL KIT) 15 ML CUP MT SCH ×3 (00:16→20:00)
[2016-07-01] MEDS: SODIUM CHLORIDE 0.9% FLUSH 5 ML FLUSH IVF SCH ×3 (00:26→21:00)
[2016-07-01] MEDS: DEXTROSE 50% IN WATER 50 ML VIAL(D50) IV PRN ×4 (00:27→08:41)
[2016-07-01] MEDS: HEPARIN SODIUM - SQ 10,000 UNITS/ML VIAL SQ SCH ×2 (00:29→13:04)
[2016-07-01] MEDS: LORazepam 2 MG/ML VIAL IVP PRN ×2 (00:29→07:45)
[2016-07-01] MEDS: RESP: ALBUTEROL 2.5 MG/IPRATROPIUM 0.5 MG NEB (SCH) NEB ×4 (03:33→21:38)
[2016-07-01] MEDS: CHLORHEXIDINE GLUCONATE 2 % 1 PACK (2 CLOTHS) TOP SCH (04:00)
[2016-07-01] MEDS: DEXTROSE 10% INJ 1,000 ML IV SCH (04:35)
[2016-07-01] MEDS: INSULIN ASPART SUPPLEMENTAL SCALE SQ SCH ×4 (06:00→17:54)
[2016-07-01 06:07] LABS: AUTOMATED NEUTROPHIL # 9.6 TH/MM3 (1.8-7.7); BASOPHIL # 0.1 TH/MM3 (0-0.2); BASOPHIL % 1.2 % (0.0-2.0); EOSINOPHIL # 0.6 TH/MM3 (0-0.4); EOSINOPHIL % 5.1 % (0.0-4.0); HEMATOCRIT 27.5 % (39.0-51.0); HEMO FLAGS DIFF FINAL; LYMPH % 2.4 % (9.0-44.0); LYMPHOCYTE # 0.3 TH/MM3 (1.0-4.8); MEAN CELL VOLUME 88.7 FL (80.0-100.0); MEAN CORPUSCULAR HGB CONC 32.7 % (32.0-36.0); MONO % 9.6 % (0.0-8.0); NEUT % 81.7 % (16.0-70.0); PLATELET COUNT 243 TH/MM3 (150-450); RED CELL DISTRIBUTION WIDTH 18.5 % (11.6-17.2); WHITE BLOOD COUNT 11.8 TH/MM3 (4.0-11.0)
[2016-07-01 06:20] LABS: ALKALINE PHOSPHATASE 210 U/L (45-117); ALT (GPT) 40 U/L (12-78); ANION GAP 11 MEQ/L (5-15); AST (GOT) 32 U/L (15-37); BICARBONATE 27.8 MEQ/L (21.0-32.0); BLOOD UREA NITROGEN 39 MG/DL (7-18); CHLORIDE 103 MEQ/L (98-107); GLOMERULAR FILTRATION RATE 10 ML/MIN (>89); POTASSIUM 4.4 MEQ/L (3.5-5.1); SODIUM (NA) 142 MEQ/L (136-145); TOTAL BILIRUBIN ADULT 0.5 MG/DL (0.2-1.0)
[2016-07-01] MEDS: TACROLIMUS 0.5 MG CAP PO SCH ×2 (06:23→17:53)
[2016-07-01] MEDS: SODIUM CHLOR 0.9% 1000 ML INJ 1,000 ML IV SCH (07:21)
--- NOTE | 2016-07-01 07:53 | HHI.CCPN ---
Subjective Remarks/Hospital Course 06/30: 46-year-old male with a medical history significant for renal/pancreatic transplant in 2014 who underwent removal of his transplanted kidney at [facility] a few months ago as it had never function per Dr. Salas's geotechnical field technician. Patient has not been very compliant with his hemodialysis and missed hemodialysis for about 1 week per documentation and was brought to the ER with shortness of breath/severe respiratory distress which required emergent intubation and he was placed on mechanical ventilation. He had a systolic blood pressure of 230s on arrival in the ER and was given nitroglycerin x 1. Chest x-ray revealed pulmonary edema. He was accepted for admission by critical care medicine service. He has already been evaluated by Dr. Salas's geotechnical field technician was arranged for emergent hemodialysis today in the ER. When I evaluated the patient earlier he was sedated with propofol, arousable, orally intubated on mechanical ventilation. He has an AV fistula in his right forearm for dialysis. 07/01: Was dialyzed yesterday. Remains sedated, orally intubated on mechanical ventilation currently on fentanyl gtt. at 100 mics per hour. When into A. fib with RVR around 7 AM this morning with ventricular rate 190s. Received Cardizem 20 mg IV stat with which he subsequently converted to sinus rhythm. He also had a temperature of 101.5 at the time. Stat blood and sputum cultures were ordered as well as nasal washings for influenza A and B. Objective Vital Signs Date Time Temp Pulse Resp B/P Pulse Ox O2 Delivery O2 Flow Rate FiO2 07/01/16 04:30 129/58 07/01/16 03:58 95 40 07/01/16 03:00 Mechanical Ventilator 07/01/16 03:00 97.9 85 22 Intake and Output 06/30/16 06/30/16 06/30/16 07:59 15:59 23:59 Output Total 3000 ml Balance -3000 ml Result Diagram: 07/01/16 0549 07/01/1649 Imaging Last Impressions Head CT 06/30/16620 Signed Impressions: Service Date/Time: Thursday, June 30, 2016 07:56 - CONCLUSION: Negative for an acute process. Garcia Jerome MD FACR Chest X-Ray 06/30/16620 Signed Impressions: Service Date/Time: Thursday, June 30, 2016 06:55 - CONCLUSION: Perihilar vascular congestion. Endotracheal tube and nasogastric tube in good position Naresh Londono MD Objective Remarks HEENT/ Neuro: Sedated, orally intubated, Pallor present, no icterus, tongue/ mucosa moist Neck: No JVD Chest/Pulm: on mech vent, good air entry bilaterally, no wheezing or crackles. CVS: S1-S2 regular, no murmur GI/abdomen: soft, nontender, bowel sounds sluggish. Healed surgical scar noted. Extremities: warm bilaterally, no edema A/P Assessment and Plan 46-year-old male with: Pulmonary edema secondary to noncompliance with hemodialysis Acute respiratory failure on mechanical ventilation Fever-suspected sepsis A. 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 Daily sedation vacation. Follow neuro status. Cardiovascular: Labetalol when necessary for hypertension. Titrate off nitroglycerin drip. Resume clonidine/metoprolol home dose. Emergent hemodialysis for fluid removal done on 06/30. Received Cardizem 20 mg IV 1 dose. Ordered amiodarone and Cardizem drip however patient converted back to sinus rhythm prior to initiation of these drips. Pulmonary: Continue mechanical ventilation. Vent bundle, bronchodilators as needed. Daily C Pap trials to decide extubation following fluid removal with hemodialysis. GI/liver: Nothing by mouth for now. If not extubated today, will initiate tube feeds. Renal/: Hemodialysis per nephrology. Dr. Salas from nephrology consulted and following. Continue immunosuppressive's per nephrology. Currently on Prograf and mycophenolate Endocrine: SSI for glycemic control. Started on D10 for hypoglycemia on 06/30 which has now been stopped as fingerstick glucose 300s. Heme: Follow CBC ID: Blood and sputum cultures ordered for fever. Check nasal washings for influenza A and B. Start empiric antibiotic coverage with IV cefepime. Vancomycin 15 mg per KG 1 dose while awaiting cultures. Prophylaxis: PPI/SCDs/subcutaneous heparin Condition critical Time spent on critical care excluding procedures 40 minutes Mitch Leiva MD Jul 01, 2016 07:53
[2016-07-01] MEDS ORDERED: VANCOMYCIN INJ 1,000 MG in SODIUM CHLOR 0.9% 250 ML INJ 250 ML IV ONE (08:00)
[2016-07-01] MEDS ORDERED: DILTIAZEM HCL 25 MG/5 ML VIAL IVP PRN (08:00)
[2016-07-01] MEDS ORDERED: DILTIAZEM HCL 25 MG/5 ML VIAL IVP ONE (08:00)
[2016-07-01] MEDS ORDERED: AMIODARONE INJ 150 MG in DEXTROSE 5% IN WATER 100ML INJ 97 ML IV ONE ×2 (08:15)
[2016-07-01] MEDS ORDERED: DILTIAZEM INJ 125 MG in SODIUM CHLORIDE 0.9% INJ 100 ML IV SCH (08:15)
[2016-07-01] MEDS ORDERED: VANCOMYCIN 1,000 MG/NS 250 ML IV ONE ×2 (08:15)
[2016-07-01] MEDS ORDERED: AMIODARONE INJ 450 MG in DEXTROSE 5% IN WATE(EXCEL) INJ 241 ML IV SCH ×2 (08:30)
[2016-07-01] MEDS: hydrALAZINE HCL 100 MG TAB PO SCH ×3 (09:00→17:54)
[2016-07-01] MEDS: cloNIDine HCL 0.3 MG TAB PO SCH ×2 (09:00→21:00)
[2016-07-01] MEDS: DOXAZOSIN MESYLATE 4 MG TAB PO SCH ×2 (09:00→20:16)
[2016-07-01] MEDS ORDERED: PANTOPRAZOLE SODIUM 40 MG VIAL IV SCH (09:00)
[2016-07-01] MEDS: MYCOPHENOLATE SODIUM 360 MG DELAYED RELEASE TAB PO SCH ×2 (10:00→20:17)
[2016-07-01] MEDS: SEVELAMER CARBONATE 800 MG TAB PO SCH ×3 (10:01→17:54)
[2016-07-01] MEDS: predniSONE 5 MG TAB PO SCH (10:01)
--- NOTE | 2016-07-01 10:03 | EKG ---
Date Performed: 07/01/2016 Time Performed: 07:29:12 PTAGE: 46 years EKG: Probable atrial fibrillation with uncontrolled ventricular response with PVC(s) Lateral T w ave changes are nonspecific Low QRS voltages in limb leads Abnormal ECG COMPARED TO PRIOR ELECTROCARD IOGRAM, Probable rapid atrial fibrillation is now present. PREVIOUS TRACING : 06/30/2016 06.27 DOCTOR: Dawson Simpson Interpretating Date/Time 07/01/2016 10:02:31
--- NOTE | 2016-07-01 10:09 | RADRPT ---
EXAM DATE/TIME: 07/01/2016 08:57 [facility] COMPARISON: CHEST SINGLE AP, June 30, 2016, 6:55. INDICATIONS : Short of breath. MEDICAL HISTORY : Diabetes mellitus type I. SURGICAL HISTORY : renal transplant ENCOUNTER: Initial ACUITY: 1 day PAIN SCORE: Non-responsive. LOCATION: Bilateral chest FINDINGS: A single view of the chest demonstrates the bibasilar densities greater in the left lower lobe. Smal l left pleural effusion. Endotracheal tube and nasogastric tube are unchanged in position. Better aer ation of the upper lobes. Osseous structures are intact. CONCLUSION: Worsening bibasilar densities greater in the left lower lobe. Probable small left pleural effusion. I mprovement of upper lobe densities on current study. Colt Vasquez MD on July 01, 2016 at 10:07 Board Certified Radiologist. This report was verified electronically.
[2016-07-01] MEDS: CEFEPIME INJ 1,000 MG in SODIUM CHLORIDE 0.9% INJ 100 ML IV SCH (10:31)
[2016-07-01] MEDS: METOPROLOL TARTRATE 100 MG TAB PO SCH ×2 (12:37→20:17)
--- NOTE | 2016-07-01 13:38 | HHI.NPPN ---
Subjective History of Present Illness 46 year old male with CHF/Pul edema ESRD after missing treatment he was intubated Interval History extubated spiked temperature getting culture, had Paroxysmal A fib with RVR currently in NSR Additional Remarks confused Review of Systems General Constitutional: Fatigue Objective Data Data 06/30/16 07/01/16 18:59 06:59 Intake Total 334 ml Output Total 3000 ml 200 ml Balance -3000 ml 134 ml Intake Oral 0 ml IV Total 334 ml Output Urine Total 0 ml Gastric Drainage Total 200 ml Hemodialysis 3000 ml # Bowel Movements 0 Vital Signs Date Time Temp Pulse Resp B/P Pulse Ox O2 Delivery O2 Flow Rate FiO2 07/01/16 13:10 97 Nasal Cannula 4 07/01/16 12:20 99 40 07/01/16 07:53 96 40 07/01/16 07:00 95 Mechanical Ventilator 40 07/01/16 07:00 101.4 173 20 176/91 96 07/01/16 07:00 40 07/01/16 07:00 85 07/01/16 04:30 129/58 07/01/16 04:00 116/57 07/01/16 03:58 95 40 07/01/16 03:00 95 Mechanical Ventilator 40 07/01/16 03:00 97.9 85 22 170/85 97 07/01/16 03:00 83 07/01/16 03:00 40 07/01/16 01:13 95 40 06/30/16 23:00 95 Mechanical Ventilator 40 06/30/16 23:00 65 06/30/16 23:00 98.0 70 20 147/75 97 06/30/16 23:00 40 06/30/16 22:55 99 40 06/30/16 20:40 98 50 06/30/16 19:00 98 Mechanical Ventilator 50 06/30/16 19:00 50 06/30/16 19:00 63 06/30/16 19:00 97.8 86 20 176/89 98 06/30/16 18:34 97.9 65 20 187/98 97 06/30/16 18:34 50 06/30/16 18:00 99 50 06/30/16 17:55 97 100 06/30/16 16:51 65 20 188/97 99 Ventilator 50 06/30/16 16:04 64 20 210/95 100 Ventilator 50 06/30/16 15:40 100 50 06/30/16 15:30 50 06/30/16 14:43 64 18 174/85 100 Ventilator 50 -: 07/01/16 0549 07/01/16 0549 Microbiology 07/01/16 Gram Stain, Received Pending 07/01/16 Sputum Culture, Received Pending 07/01/16 Influenza Types A,B Antigen (JAYY) - Final, Complete NEGATIVE FOR FLU A AND B ANTIGEN.... Physical Exam General Appearance: Well Developed, Well Nourished Eyes Eye Exam: Pupils Equal Neck Neck Exam: Neck Supple Pulmonary Resp Exam: Clear Bilaterally, Breath Sounds Equal Cardiology CV Exam: Regular, Normal Sinus Rhythm Gastrointestinal/Abdomen GI Exam: Soft, Non-Tender, Bowel Sounds Present Extremeties Extremities Exam: No Edema Assessment/Plan Problem List: (1) History of simultaneous kidney and pancreas transplant Plan: Patient has been extubated adjust Prograf 2.5 mg bid Myfortic 360 mg bid Prednisone 5 mg daily continue supportive care HD tomorrow (2) ESRD (end stage renal disease) on dialysis Plan: Patient has failed his kidney transplant been back on hemodialysis, he had trouble from the start of his transplant and he required for this peritoneal dialysis and then subsequently went on hemodialysis (3) Flash pulmonary edema Plan: extubated (4) Respiratory failure Plan: On ventilator (5) Fever Plan: T 101.4 culture ordered CXR increase infiltrates ? Pneumonia Problem Qualifiers (1) Respiratory failure: Qualified Code: J96.01 - Acute respiratory failure with hypoxia Oxana Salas MD Jul 01, 2016 13:38
[2016-07-01] MEDS: TACROLIMUS 1 MG CAP PO SCH (17:53)
[2016-07-01] MEDS: ATORVASTATIN 20 MG TAB PO SCH (20:16)
[2016-07-01] MEDS: GABAPENTIN 300 MG CAP PO SCH (20:17)
[2016-07-02] VITALS (16 sets, daily range): BP systolic 127–167; BP diastolic 58–75; PULSE 71–89; RESP 16–20; TEMP 97.7–99.4; O2SAT 95–99
[2016-07-02] MEDS: HEPARIN SODIUM - SQ 10,000 UNITS/ML VIAL SQ SCH ×3 (00:13→23:52)
[2016-07-02] MEDS: RESP: ALBUTEROL 2.5 MG/IPRATROPIUM 0.5 MG NEB (SCH) NEB ×4 (03:47→19:55)
[2016-07-02] MEDS: CHLORHEXIDINE GLUCONATE 2 % 1 PACK (2 CLOTHS) TOP SCH (04:00)
[2016-07-02] MEDS: DEXTROSE 10% INJ 1,000 ML IV SCH (04:15)
[2016-07-02 05:12] LABS: AUTOMATED NEUTROPHIL # 14.6 TH/MM3 (1.8-7.7); BASOPHIL # 0.1 TH/MM3 (0-0.2); BASOPHIL % 0.5 % (0.0-2.0); EOSINOPHIL # 0.4 TH/MM3 (0-0.4); EOSINOPHIL % 2.1 % (0.0-4.0); HEMATOCRIT 26.2 % (39.0-51.0); HEMO FLAGS DIFF FINAL; LYMPH % 1.8 % (9.0-44.0); LYMPHOCYTE # 0.3 TH/MM3 (1.0-4.8); MEAN CORPUSCULAR HEMOGLOBIN 29.3 PG (27.0-34.0); MEAN CORPUSCULAR HGB CONC 32.6 % (32.0-36.0); NEUT % 86.6 % (16.0-70.0); PLATELET COUNT 214 TH/MM3 (150-450); RED BLOOD COUNT 2.91 MIL/MM3 (4.50-5.90); RED CELL DISTRIBUTION WIDTH 18.9 % (11.6-17.2); WHITE BLOOD COUNT 16.8 TH/MM3 (4.0-11.0)
[2016-07-02 05:53] LABS: ALKALINE PHOSPHATASE 174 U/L (45-117); ALT (GPT) 31 U/L (12-78); ANION GAP 12 MEQ/L (5-15); AST (GOT) 40 U/L (15-37); BICARBONATE 26.6 MEQ/L (21.0-32.0); BLOOD UREA NITROGEN 47 MG/DL (7-18); CHLORIDE 101 MEQ/L (98-107); GLOMERULAR FILTRATION RATE 8 ML/MIN (>89); POTASSIUM 4.6 MEQ/L (3.5-5.1); SODIUM (NA) 140 MEQ/L (136-145); TOTAL BILIRUBIN ADULT 0.5 MG/DL (0.2-1.0)
[2016-07-02] MEDS: INSULIN ASPART SUPPLEMENTAL SCALE SQ SCH ×5 (06:00→23:56)
[2016-07-02] MEDS: TACROLIMUS 0.5 MG CAP PO SCH ×2 (06:01→17:32)
[2016-07-02] MEDS: TACROLIMUS 1 MG CAP PO SCH ×2 (06:01→17:37)
[2016-07-02] MEDS: SODIUM CHLOR 0.9% 1000 ML INJ 1,000 ML IV SCH (07:21)
[2016-07-02] MEDS: CHLORHEXIDINE 0.12% (ORAL KIT) 15 ML CUP MT SCH ×2 (08:00→20:00)
--- NOTE | 2016-07-02 08:27 | HHI.NPPN ---
Subjective History of Present Illness 46 year old male with CHF/Pul edema ESRD after missing treatment he was intubated Additional Remarks wants to go home Review of Systems General Constitutional: Fatigue Objective Data Data 07/01/16 07/02/16 19:00 07:00 Intake Total 671 ml 510 ml Output Total 100 ml 500 ml Balance 571 ml 10 ml Intake Oral 480 ml IV Total 671 ml 30 ml Output Urine Total 0 ml 500 ml Gastric Drainage Total 100 ml # Bowel Movements 0 Vital Signs Date Time Temp Pulse Resp B/P Pulse Ox O2 Delivery O2 Flow Rate FiO2 07/02/16 03:00 86 07/02/16 03:00 99.4 84 17 158/73 95 07/02/16 03:00 95 Nasal Cannula 4.00 07/01/16 23:00 97 Nasal Cannula 4.00 07/01/16 23:00 99.5 88 18 157/63 98 07/01/16 23:00 88 07/01/16 21:38 97 Nasal Cannula 2.00 07/01/16 19:00 99.2 94 18 178/82 93 07/01/16 19:00 93 Nasal Cannula 4.00 07/01/16 19:00 88 07/01/16 16:00 99 Nasal Cannula 4.00 07/01/16 15:00 98 Nasal Cannula 4.00 07/01/16 15:00 78 07/01/16 15:00 99.3 79 16 147/46 97 07/01/16 13:10 97 Nasal Cannula 4 07/01/16 12:20 99 40 07/01/16 11:00 99.5 78 20 134/48 98 07/01/16 11:00 40 07/01/16 11:00 95 Mechanical Ventilator 40 07/01/16 11:00 78 -: 07/02/16 0425 07/02/16 0425 Microbiology 07/01/16 Gram Stain - Final, Resulted 07/01/16 Sputum Culture, Resulted Pending 07/01/16 Influenza Types A,B Antigen (JAYY) - Final, Complete NEGATIVE FOR FLU A AND B ANTIGEN.... 07/01/16 Aerobic Blood Culture, Received Pending 07/01/16 Anaerobic Blood Culture, Received Pending 07/01/16 Aerobic Blood Culture, Received Pending 07/01/16 Anaerobic Blood Culture, Received Pending Physical Exam General Appearance: Well Developed, Well Nourished Eyes Eye Exam: Pupils Equal Neck Neck Exam: Neck Supple Pulmonary Resp Exam: Clear Bilaterally, Breath Sounds Equal Cardiology CV Exam: Regular, Normal Sinus Rhythm Gastrointestinal/Abdomen GI Exam: Soft, Non-Tender, Bowel Sounds Present Extremeties Extremities Exam: No Edema Assessment/Plan Problem List: (1) History of simultaneous kidney and pancreas transplant Plan: Patient seen during hemodialysis UF 2.5 L adjust Prograf 2.5 mg bid Myfortic 360 mg bid Prednisone 5 mg daily Tacrolimus level 3.5 adjust Tacrolimus to 3.5 mg bid continue supportive care (2) ESRD (end stage renal disease) on dialysis Plan: Patient has failed his kidney transplant seen during HD (3) Flash pulmonary edema Plan: extubated (4) Respiratory failure Plan: On ventilator (5) Fever Plan: T 101.4 culture ordered CXR increase infiltrates ? Pneumonia Problem Qualifiers (1) Respiratory failure: Qualified Code: J96.01 - Acute respiratory failure with hypoxia Oxana Salas MD Jul 02, 2016 08:27
[2016-07-02] MEDS: CEFEPIME INJ 1,000 MG in SODIUM CHLORIDE 0.9% INJ 100 ML IV SCH (08:45)
[2016-07-02] MEDS: cloNIDine HCL 0.3 MG TAB PO SCH ×2 (08:49→21:51)
[2016-07-02] MEDS: SEVELAMER CARBONATE 800 MG TAB PO SCH ×3 (08:49→17:31)
[2016-07-02] MEDS: MYCOPHENOLATE SODIUM 360 MG DELAYED RELEASE TAB PO SCH ×2 (08:50→21:50)
[2016-07-02] MEDS: predniSONE 5 MG TAB PO SCH (08:50)
[2016-07-02] MEDS: DOXAZOSIN MESYLATE 4 MG TAB PO SCH ×2 (08:51→21:51)
[2016-07-02] MEDS: METOPROLOL TARTRATE 100 MG TAB PO SCH ×2 (08:51→21:50)
[2016-07-02] MEDS: SODIUM CHLORIDE 0.9% FLUSH 5 ML FLUSH IVF SCH ×2 (08:51→21:51)
[2016-07-02] MEDS: hydrALAZINE HCL 100 MG TAB PO SCH ×3 (08:51→17:38)
[2016-07-02] MEDS: GELATIN 12 MM/7 MM FOAM TOP PRN (09:14)
[2016-07-02] MEDS: NICOTINE 14 MG/24 HR PATCH TD SCH (11:43)
--- NOTE | 2016-07-02 17:30 | HHI.PR ---
Subjective Remarks Follow-up for shortness of breath Patient wants to go home, blood pressure in the 150s to 160s. On 4 L of oxygen , still desaturates. Objective Vitals Vital Signs Date Time Temp Pulse Resp B/P Pulse Ox O2 Delivery O2 Flow Rate FiO2 07/02/16 17:10 75 07/02/16 16:21 71 07/02/16 15:21 99 Nasal Cannula 2.00 07/02/16 15:21 98.5 77 16 127/60 99 07/02/16 15:21 77 07/02/16 11:00 97.7 89 20 165/73 95 07/02/16 11:00 81 07/02/16 11:00 95 Nasal Cannula 4.00 07/02/16 09:24 97 Nasal Cannula 4.00 07/02/16 08:00 99.0 82 20 167/75 97 07/02/16 08:00 81 07/02/16 08:00 97 Nasal Cannula 4.00 07/02/16 03:00 86 07/02/16 03:00 99.4 84 17 158/73 95 07/02/16 03:00 95 Nasal Cannula 4.00 07/01/16 23:00 97 Nasal Cannula 4.00 07/01/16 23:00 99.5 88 18 157/63 98 07/01/16 23:00 88 07/01/16 21:38 97 Nasal Cannula 2.00 07/01/16 19:00 99.2 94 18 178/82 93 07/01/16 19:00 93 Nasal Cannula 4.00 07/01/16 19:00 88 I/O 07/01/16 07/01/16 07/01/16 07/02/16 07/02/16 07/02/16 07:00 15:00 23:00 07:00 15:00 23:00 Intake Total 334 ml 671 ml 510 ml 400 ml Output Total 200 ml 100 ml 500 ml 2500 ml Balance 134 ml 571 ml 10 ml -2100 ml Intake Oral 0 ml 480 ml 400 ml IV Total 334 ml 671 ml 30 ml Output Urine Total 0 ml 0 ml 500 ml Gastric Drainage Total 200 ml 100 ml Hemodialysis 2500 ml # Bowel Movements 0 0 Result Diagram: 07/02/1642407/02/16424 Objective Remarks Not in distress, well-nourished, looks stated age PERRL, pink conjunctiva without injection, anicteric Nose without bleeding, airway patent, oropharynx clear Supple neck, no masses or thyromegaly, trachea midline Normal rate and regular rhythm, no murmurs gallops or rubs appreciated. Clear to auscultation and symmetric bilaterally, normal respiratory effort. Normal bowel sounds, soft, non-tender, nondistended, no guarding. Extremities without clubbing, cyanosis, or edema. No rash of generalized distribution. Skin is warm and dry. AAO x3, no cranial nerve deficits, moves all 4 extremities, no focal neurologic deficits Normal mood, appropriate affect A/P Assessment and Plan 46-year-old male with: Pulmonary edema secondary to noncompliance with hemodialysis-dialysis per nephrology, patient is poorly compliant, wants to go home. Nephrology following , continue immunomodulators including Prograf, mycophenolate and prednisone. Acute respiratory failure on mechanical ventilation-extubated, monitor, on oxygen 4 L. Pneumonia-suspected, continue cefepime for now. Repeat chest x-ray shows worsening bibasilar densities in the left lower lobe. Continue duo nebs. A. fib with RVR (converted to sinus rhythm)-continue Cardizem, and metoprolol, sinus rhythm conversion before starting amiodarone, stop amiodarone, check echocardiogram. 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 Heparin for DVT prophylaxis Ruby Dean MD Jul 02, 2016 17:30
[2016-07-02] MEDS: ATORVASTATIN 20 MG TAB PO SCH (21:51)
[2016-07-02] MEDS: GABAPENTIN 300 MG CAP PO SCH (21:51)
[2016-07-03] VITALS (27 sets, daily range): BP systolic 125–159; BP diastolic 58–76; PULSE 70–85; RESP 16; TEMP 98–98.7; O2SAT 94–99
[2016-07-03] MEDS: CHLORHEXIDINE GLUCONATE 2 % 1 PACK (2 CLOTHS) TOP SCH (04:00)
[2016-07-03] MEDS: RESP: ALBUTEROL 2.5 MG/IPRATROPIUM 0.5 MG NEB (SCH) NEB ×4 (04:07→19:47)
[2016-07-03 05:27] LABS: AUTOMATED NEUTROPHIL # 11.1 TH/MM3 (1.8-7.7); BASOPHIL # 0.1 TH/MM3 (0-0.2); BASOPHIL % 0.6 % (0.0-2.0); EOSINOPHIL # 0.7 TH/MM3 (0-0.4); EOSINOPHIL % 5.5 % (0.0-4.0); HEMATOCRIT 25.5 % (39.0-51.0); HEMO FLAGS DIFF FINAL; LYMPH % 2.4 % (9.0-44.0); LYMPHOCYTE # 0.3 TH/MM3 (1.0-4.8); MEAN CELL VOLUME 89.2 FL (80.0-100.0); MEAN CORPUSCULAR HEMOGLOBIN 28.8 PG (27.0-34.0); MEAN CORPUSCULAR HGB CONC 32.2 % (32.0-36.0); MONO % 9.6 % (0.0-8.0); NEUT % 81.9 % (16.0-70.0); PLATELET COUNT 211 TH/MM3 (150-450); RED BLOOD COUNT 2.86 MIL/MM3 (4.50-5.90); RED CELL DISTRIBUTION WIDTH 18.8 % (11.6-17.2); WHITE BLOOD COUNT 13.5 TH/MM3 (4.0-11.0)
[2016-07-03 06:09] LABS: BICARBONATE 30.1 MEQ/L (21.0-32.0); POTASSIUM 4.1 MEQ/L (3.5-5.1)
[2016-07-03] MEDS: TACROLIMUS 0.5 MG CAP PO SCH ×3 (06:27→18:33)
[2016-07-03] MEDS: TACROLIMUS 1 MG CAP PO SCH ×2 (06:28→17:48)
[2016-07-03] MEDS: INSULIN ASPART SUPPLEMENTAL SCALE SQ SCH ×4 (06:32→23:38)
[2016-07-03] MEDS: SODIUM CHLOR 0.9% 1000 ML INJ 1,000 ML IV SCH (07:21)
[2016-07-03] MEDS: CHLORHEXIDINE 0.12% (ORAL KIT) 15 ML CUP MT SCH ×2 (08:00→20:00)
[2016-07-03] MEDS: REMOVE OLD PATCH TD SCH (09:00)
[2016-07-03] MEDS: CEFEPIME INJ 1,000 MG in SODIUM CHLORIDE 0.9% INJ 100 ML IV SCH (09:04)
[2016-07-03] MEDS: predniSONE 5 MG TAB PO SCH (09:05)
[2016-07-03] MEDS: cloNIDine HCL 0.3 MG TAB PO SCH ×2 (09:05→20:55)
[2016-07-03] MEDS: SEVELAMER CARBONATE 800 MG TAB PO SCH ×4 (09:05→17:48)
[2016-07-03] MEDS: METOPROLOL TARTRATE 100 MG TAB PO SCH ×2 (09:06→20:55)
[2016-07-03] MEDS: SODIUM CHLORIDE 0.9% FLUSH 5 ML FLUSH IVF SCH ×2 (09:06→20:56)
[2016-07-03] MEDS: DOXAZOSIN MESYLATE 4 MG TAB PO SCH ×2 (09:06→20:56)
[2016-07-03] MEDS: NICOTINE 14 MG/24 HR PATCH TD SCH (09:06)
[2016-07-03] MEDS: MYCOPHENOLATE SODIUM 360 MG DELAYED RELEASE TAB PO SCH ×2 (09:14→20:55)
[2016-07-03] MEDS: hydrALAZINE HCL 100 MG TAB PO SCH ×3 (09:14→17:48)
--- NOTE | 2016-07-03 10:20 | HHI.PR ---
Subjective Remarks fu pna, respiratory failure, afib with rvr, IDDM, HTN patient feels better sob better - denies cp denies fevers/chills (+) cough - not bringing much phlegm Objective Vitals Vital Signs Date Time Temp Pulse Resp B/P Pulse Ox O2 Delivery O2 Flow Rate FiO2 07/03/16 10:00 75 07/03/16 09:02 98 Nasal Cannula 2.00 07/03/16 09:01 98.3 71 16 151/73 99 07/03/16 09:00 77 07/03/16 08:00 79 07/03/16 07:00 85 07/03/16 04:48 98 Nasal Cannula 2.00 07/03/16 04:47 98.3 79 16 151/60 98 07/03/16 04:00 79 07/03/16 03:00 84 07/03/16 02:00 82 07/03/16 01:00 79 07/03/16 00:00 81 07/02/16 23:45 98 Nasal Cannula 2.00 07/02/16 23:45 98.4 78 16 142/58 98 07/02/16 23:00 84 07/02/16 22:00 82 07/02/16 21:00 82 07/02/16 20:00 78 07/02/16 19:57 96 2.00 07/02/16 19:31 98 Nasal Cannula 2.00 07/02/16 19:25 98.1 77 16 148/65 98 07/02/16 19:00 76 07/02/16 18:05 83 07/02/16 17:10 75 07/02/16 16:21 71 07/02/16 15:21 99 Nasal Cannula 2.00 07/02/16 15:21 98.5 77 16 127/60 99 07/02/16 15:21 77 07/02/16 11:00 97.7 89 20 165/73 95 07/02/16 11:00 81 07/02/16 11:00 95 Nasal Cannula 4.00 I/O 07/02/16 07/02/16 07/02/16 07/03/16 07/03/16 07/03/16 07:00 15:00 23:00 07:00 15:00 23:00 Intake Total 510 ml 400 ml 240 ml 320 ml Output Total 500 ml 2500 ml 2500 ml Balance 10 ml -2100 ml -2260 ml 320 ml Intake Oral 480 ml 400 ml 240 ml 320 ml IV Total 30 ml 0 ml Output Urine Total 500 ml 0 ml Hemodialysis 2500 ml 2500 ml # Bowel Movements 0 Result Diagram: 07/03/16 0508 07/03/16 0508 Imaging Last Impressions Chest X-Ray 07/01/16 0000 Signed Impressions: Service Date/Time: June 08:57 - CONCLUSION: Worsening bibasilar densities greater in the left lower lobe. Probable small left pleural effusion. Improvement of upper lobe densities on current study. Colt Vasquez MD Head CT 06/30/16 0621 Signed Impressions: Service Date/Time: Thursday, June 30, 2016 07:56 - CONCLUSION: Negative for an acute process. Garcia Jerome MD FACR Objective Remarks GENERAL: Patient is awake and alert, NAD on nasal canula - not in respiratory distress. SKIN: Warm and dry. HEAD: Normocephalic. EYES: No scleral icterus. No injection or drainage. NECK: Supple, trachea midline. No JVD or lymphadenopathy. CARDIOVASCULAR: Irregularly irregular, systolic III/ murmur RESPIRATORY: Breath sounds equal bilaterally. No accessory muscle use. Decreased bilaterally at the bases. GASTROINTESTINAL: Abdomen soft, non-tender, nondistended. MUSCULOSKELETAL: No cyanosis, or edema. BACK: Nontender without obvious deformity. No CVA tenderness. Medications and IVs Current Medications Medications (Trade) Dose Ordered Sig/Rukhsana Route Start Time Stop Time Status Last Admin Nitroglycerin/ Dextrose 250 ml @ 0 mls/hr TITRATE IV 06/30/16 06:30 06/30/16 06:37 Sodium Chloride 1,000 ml @ 5 mls/hr Q24H IV 06/30/16 07:21 06/30/16 08:20 (NS 1000 ml Inj) 1,000 ml @ 0 mls/hr Q0M PRN IV 06/30/16 10:50 07/02/16 09:13 Heparin Sodium (Porcine) 8000 units 8,000 units UNSCH PRN IVF 06/30/16 11:00 Sodium Chloride 1,000 ml @ 200 mls/hr Q5H PRN IV 06/30/16 10:50 (NS 1000 ml Inj) 1,000 ml @ 0 mls/hr Q0M PRN IV 06/30/16 10:50 (Mannitol Inj) 12.5 gm UNSCH PRN IV 06/30/16 11:00 (Albumin 25% Inj) 25 gm UNSCH PRN IV 06/30/16 11:00 (NS Flush) 5 ml UNSCH PRN IVF 06/30/16 11:00 (Zofran Inj) 4 mg UNSCH PRN IV 06/30/16 11:00 (Tylenol) 650 mg UNSCH PRN PO 06/30/16 11:00 07/01/16 07:45 (Benadryl) 25 mg UNSCH PRN PO 06/30/16 11:00 (Nitrostat Sl) 0.4 mg UNSCH PRN SL 06/30/16 11:00 (Catapres) 0.1 mg UNSCH PRN PO 06/30/16 11:00 (Gelfoam 12 Mm/7 Mm Top) 1 foam UNSCH PRN TOP 06/30/16 11:00 07/02/16 09:14 (Epogen Inj) 10,000 units UNSCH PRN IV 06/30/16 11:00 (NS Flush) 2 ml UNSCH PRN IVF 06/30/16 11:00 (NS Flush) 2 ml BID IVF 06/30/16 21:00 07/03/16 09:06 (Tylenol) 650 mg Q6H PRN PO 06/30/16 11:00 (Percocet 5-325 Mg) 1 tab Q4H PRN PO 06/30/16 11:00 (Morphine Inj) 2 mg Q2H PRN IV 06/30/16 11:00 (Peridex 0.12% Liq) 15 ml BID@08,20 MT 06/30/16 20:00 07/01/16 09:43 (Heparin Inj) 5,000 units Q12H SQ 06/30/16 12:00 07/02/16 23:52 Miscellaneous Information 1 Q361D XX 06/30/16 11:00 06/30/16 14:49 (Chlorhexidine 2% Cloth) 3 pack Taper DAILY@04 TOP 07/01/16 04:00 06/27/17 03:59 (Chlorhexidine 2% Cloth) 3 pack UNSCH PRN TOP 06/30/16 11:00 (Trandate Inj) 10 mg Q4H PRN IV PUSH 06/30/16 11:15 (Prograf) 0.5 mg BID@06,18 PO 06/30/16 18:00 07/03/16 06:27 (Ativan Inj) 2 mg Q2H PRN IVP 06/30/16 16:15 07/01/16 07:45 (NovoLOG SUPPLEMENTAL SCALE) 1 Q6HR SQ 06/30/16 18:00 07/03/16 06:32 (D50w (Vial) Inj) 25 ml UNSCH PRN IV 06/30/16 16:30 07/01/16 08:41 (Glucagon Inj) 1 mg UNSCH PRN IM/SQ 06/30/16 16:30 (Catapres) 0.3 mg BID PO 06/30/16 21:00 07/03/16 09:05 (Cardura) 4 mg BID PO 06/30/16 21:00 07/03/16 09:06 (Neurontin) 300 mg HS PO 06/30/16 21:00 07/02/16 21:51 (Apresoline) 100 mg TID PO 06/30/16 18:00 07/03/16 09:14 (Lopressor) 100 mg BID PO 06/30/16 21:00 07/03/16 09:06 (Myfortic Dr) 360 mg BID PO 06/30/16 21:00 07/03/16 09:14 (Deltasone) 5 mg DAILY PO 07/01/16 09:00 07/03/16 09:05 (Requip) 9 mg HS PO 06/30/16 21:00 07/02/16 21:50 (Renvela) 800 mg TID PO 06/30/16 18:00 07/03/16 09:05 (Valcyte) 450 mg MoWeFr PO 06/30/16 18:00 07/02/16 17:40 (Lipitor) 20 mg HS PO 06/30/16 21:00 07/02/16 21:51 Miscellaneous 1 ea 1 ea UNSCH PRN OTHER 06/30/16 17:30 Diltiazem HCl 125 mg/Sodium Chloride 125 ml @ 0 mls/hr TITRATE IV 07/01/16 08:15 (Maxipime Inj/NS Inj) 100 ml @ 200 mls/hr Q24H IV 07/01/16 09:00 07/03/16 09:04 (Habitrol 14 Mg Patch.24 Hr) 1 patch DAILY TD 07/02/16 09:00 07/03/16 09:06 Miscellaneous Information 1 DAILY TD 07/03/16 09:00 07/03/16 09:00 (Prograf) 3 mg BID@06,18 PO 07/02/16 18:00 07/03/16 06:28 Urinary Catheter: No Vascular Central Line Catheter: No A/P Problem List: (1) Flash pulmonary edema ICD Code: J81.0 Status: Resolved Plan: Fast, edema secondary to noncompliance with hemodialysis per nephrology, patient is poorly noncompliant once home. Nephrology consulted and following. Continue immunomodulators including Prograf, mycophenolate and prednisone. (2) Respiratory failure ICD Code: J96.90 Status: Resolved Plan: Patient status post mechanical ventilation and extubated, monitor currently satting above 96% on 2 L nasal cannula. (3) ESRD (end stage renal disease) on dialysis ICD Code: N18.6 Status: Acute Plan: Follow nephrology recommendations. The following medications were adjusted as follows adjust Prograf 2.5 mg bid Myfortic 360 mg bid Prednisone 5 mg daily Tacrolimus level 3.5 adjust Tacrolimus to 3.5 mg bid (4) PNA (pneumonia) ICD Code: J18.9 Status: Acute Plan: Continue IV cefepime. Blood cultures negative 1. Sputum culture had light growth of normal respiratory radha. Negative for flu a and B. Will start Robitussin-DM for persistent cough. Incentive spirometry. (5) Afib ICD Code: I48.91 Status: Acute Plan: Seems to be rate controlled now. Continue metoprolol 100 mg by mouth twice a day (6) HTN (hypertension) ICD Code: I10 Status: Acute Plan: Hypertension with acceptable control for 150s. I will increase Cardura to 6 mg by mouth daily. Assessment and Plan Will order PT evaluation. GI prophylaxis: PPI. DVT prophylaxis: SCDs, heparin subcutaneously. Discharge Planning Pending PT evaluation, possible discharge in a.m. Problem Qualifiers (1) Respiratory failure: Qualified Code: J96.01 - Acute respiratory failure with hypoxia (2) PNA (pneumonia): Qualified Code: J18.9 - Pneumonia of both lungs due to infectious organism, unspecified part of lung (3) Afib: Qualified Code: I48.2 - Chronic atrial fibrillation (4) HTN (hypertension): Qualified Code: I10 - Essential hypertension Sal Schneider MD Jul 03, 2016 10:20
[2016-07-03] MEDS: HEPARIN SODIUM - SQ 10,000 UNITS/ML VIAL SQ SCH ×2 (11:42→23:38)
--- NOTE | 2016-07-03 11:51 | HHI.NPPN ---
Subjective History of Present Illness 46 year old male with CHF/Pul edema ESRD after missing treatment he was intubated Additional Remarks patient had dialysis yesterday. Feels better. Wants to go home. No fever since Review of Systems General Constitutional: Fatigue Respiratory Lungs: Cough Objective Data Data 07/02/16 07/03/16 19:00 07:00 Intake Total 640 ml 320 ml Output Total 5000 ml Balance -4360 ml 320 ml Intake Oral 640 ml 320 ml IV Total 0 ml Output Urine Total 0 ml Hemodialysis 5000 ml Vital Signs Date Time Temp Pulse Resp B/P Pulse Ox O2 Delivery O2 Flow Rate FiO2 07/03/16 11:14 97 Nasal Cannula 2.00 07/03/16 11:00 70 07/03/16 10:37 94 Nasal Cannula 2.00 07/03/16 10:00 75 07/03/16 09:02 98 Nasal Cannula 2.00 07/03/16 09:01 98.3 71 16 151/73 99 07/03/16 09:00 77 07/03/16 08:00 79 07/03/16 07:00 85 07/03/16 04:48 98 Nasal Cannula 2.00 07/03/16 04:47 98.3 79 16 151/60 98 07/03/16 04:00 79 07/03/16 03:00 84 07/03/16 02:00 82 07/03/16 01:00 79 07/03/16 00:00 81 07/02/16 23:45 98 Nasal Cannula 2.00 07/02/16 23:45 98.4 78 16 142/58 98 07/02/16 23:00 84 07/02/16 22:00 82 07/02/16 21:00 82 07/02/16 20:00 78 07/02/16 19:57 96 2.00 07/02/16 19:31 98 Nasal Cannula 2.00 07/02/16 19:25 98.1 77 16 148/65 98 07/02/16 19:00 76 07/02/16 18:05 83 07/02/16 17:10 75 07/02/16 16:21 71 07/02/16 15:21 99 Nasal Cannula 2.00 07/02/16 15:21 98.5 77 16 127/60 99 07/02/16 15:21 77 -: 07/03/16 0508 07/03/16 0508 Physical Exam General Appearance: Well Developed, Well Nourished Eyes Eye Exam: Pupils Equal Neck Neck Exam: Neck Supple Pulmonary Resp Exam: Breath Sounds Equal, Rhonchi Cardiology CV Exam: Regular, Normal Sinus Rhythm Gastrointestinal/Abdomen GI Exam: Soft, Non-Tender, Bowel Sounds Present Extremeties Extremities Exam: No Edema Assessment/Plan Problem List: (1) History of simultaneous kidney and pancreas transplant Plan: patient with failed renal transplant. Prograf dose increased to 3.5 mg PO BID due to low level. Also on Prednisone and Myfortic. (2) ESRD (end stage renal disease) on dialysis Plan: Patient has failed his kidney transplant Continue Renvela. Apparently he is non compliant. (3) Flash pulmonary edema Plan: extubated (4) Respiratory failure Plan: improved, resolved. (5) Fever Plan: No fever since 07/01. Being treated for pneumonia. Problem Qualifiers (1) Respiratory failure: Qualified Code: J96.01 - Acute respiratory failure with hypoxia Nguyễn Banuelos MD Jul 03, 2016 11:51
--- NOTE | 2016-07-03 12:26 | EC ---
Study Study Date:07/03/2016 STUDY CONCLUSIONS SUMMARY - Left ventricle: The cavity size was normal. Wall thickness was normal. Systolic function was normal. The estimated ejection fraction was in the range of 55% to 60%. Wall motion was normal; there were no regional wall motion abnormalities. - Mitral valve: Mildly calcified annulus. If LV function is below 40, please consider prescribing an ACEI or ARB or document rationale for non-use. PROCEDURE DATA STUDY STATUS: Elective. Procedure: Transthoracic echocardiography. Image quality was adequate. Scanning was performed from the parasternal, apical, and subcostal acoustic windows. Study completion: The patient tolerated the procedure well. Transthoracic echocardiography. M-mode, complete 2D, complete spectral Doppler, and color Doppler. Patient status: Inpatient. CARDIAC ANATOMY LEFT VENTRICLE: The cavity size was normal. Wall thickness was normal. Systolic function was normal. The estimated ejection fraction was in the range of 55% to 60%. Wall motion was normal; there were no regional wall motion abnormalities. AORTIC VALVE: Trileaflet; mildly thickened, mildly calcified leaflets. Doppler: Transvalvular velocity was within the normal range. There was no stenosis. No regurgitation. AORTA: Aortic root: The aortic root was normal in size. MITRAL VALVE: Mildly calcified annulus. Doppler: Transvalvular velocity was within the normal range. There was no evidence for stenosis. Trace regurgitation. LEFT ATRIUM: The atrium was normal in size. RIGHT VENTRICLE: The cavity size was normal. Wall thickness was normal. PULMONIC VALVE: Poorly visualized. Doppler: Transvalvular velocity was within the normal range. There was no evidence for stenosis. No regurgitation. TRICUSPID VALVE: Structurally normal valve. Doppler: Transvalvular velocity was within the normal range. Trace regurgitation. PULMONARY ARTERY: The main pulmonary artery was normal-sized. RIGHT ATRIUM: The atrium was normal in size. PERICARDIUM: There was no pericardial effusion. BASIC MEASUREMENTS ADULT Normal Left ventricle LV internal dimension, ED, chordal level, 51.8 mm 43-52 PLAX LV posterior wall thickness, ED 7.67 mm IVS/LVPW ratio, ED *1.37 <1.3 Ventricular septum Septal thickness, ED 10.5 mm Aortic valve Leaflet separation 20 mm 15-26 Left atrium Anterior-posterior dimension 38 mm Right ventricle RV internal dimension, ED, PLAX 22.6 mm 19-38 BASIC MEASUREMENTS ADULT Normal Aortic valve Leaflet separation 20 mm 15-26 Aorta Root diameter, ED 30 mm 20-37 DOPPLER MEASUREMENTS ADULT Normal Mitral valve Peak E-wave velocity 157 cm/s Peak A-wave velocity 57.1 cm/s Peak E/A ratio 2.7 Maximal regurgitant velocity 464 cm/s Tricuspid valve Regurgitant peak velocity 271 cm/s Peak RV-RA gradient, S 29 mm Hg Maximal regurgitant velocity 271 cm/s Systemic veins Estimated CVP 10 mm Hg LEGEND: Mean values are shown as u=mean value. Asterisk (*) valencia values outside specified normal range. Prepared and signed by Dawson Simpson [id number]
[2016-07-03] MEDS: GABAPENTIN 300 MG CAP PO SCH (20:56)
[2016-07-03] MEDS: ATORVASTATIN 20 MG TAB PO SCH (20:56)
[2016-07-03] MEDS: guaiFENesin E.R. 600 MG TAB PO SCH (20:56)
[2016-07-04] VITALS (14 sets, daily range): BP systolic 105–183; BP diastolic 58–78; PULSE 70–84; RESP 16; TEMP 98–99.1; O2SAT 97–98
[2016-07-04] MEDS: CHLORHEXIDINE GLUCONATE 2 % 1 PACK (2 CLOTHS) TOP SCH (00:57)
[2016-07-04] MEDS: RESP: ALBUTEROL 2.5 MG/IPRATROPIUM 0.5 MG NEB (SCH) NEB ×3 (03:50→15:15)
[2016-07-04 04:27] LABS: AUTOMATED NEUTROPHIL # 8.8 TH/MM3 (1.8-7.7); BASOPHIL # 0.1 TH/MM3 (0-0.2); BASOPHIL % 0.6 % (0.0-2.0); EOSINOPHIL # 0.9 TH/MM3 (0-0.4); EOSINOPHIL % 8.2 % (0.0-4.0); HEMATOCRIT 25.8 % (39.0-51.0); HEMO FLAGS DIFF FINAL; LYMPH % 3.8 % (9.0-44.0); LYMPHOCYTE # 0.4 TH/MM3 (1.0-4.8); MEAN CELL VOLUME 88.4 FL (80.0-100.0); MEAN CORPUSCULAR HEMOGLOBIN 28.4 PG (27.0-34.0); MEAN CORPUSCULAR HGB CONC 32.1 % (32.0-36.0); MONO % 9.4 % (0.0-8.0); PLATELET COUNT 220 TH/MM3 (150-450); RED BLOOD COUNT 2.92 MIL/MM3 (4.50-5.90); RED CELL DISTRIBUTION WIDTH 18.5 % (11.6-17.2); WHITE BLOOD COUNT 11.3 TH/MM3 (4.0-11.0)
[2016-07-04 05:01] LABS: ALT (GPT) 20 U/L (12-78); ANION GAP 11 MEQ/L (5-15); AST (GOT) 16 U/L (15-37); BICARBONATE 30.3 MEQ/L (21.0-32.0); BLOOD UREA NITROGEN 44 MG/DL (7-18); CHLORIDE 98 MEQ/L (98-107); GLOMERULAR FILTRATION RATE 8 ML/MIN (>89); MAGNESIUM 2.1 MG/DL (1.5-2.5); SODIUM (NA) 139 MEQ/L (136-145)
[2016-07-04 05:14] LABS: ALKALINE PHOSPHATASE 135 U/L (45-117)
[2016-07-04 05:15] LABS: TOTAL BILIRUBIN ADULT 0.4 MG/DL (0.2-1.0)
[2016-07-04] MEDS: TACROLIMUS 0.5 MG CAP PO SCH ×2 (05:54→17:29)
[2016-07-04] MEDS: TACROLIMUS 1 MG CAP PO SCH ×2 (05:54→17:18)
[2016-07-04] MEDS: INSULIN ASPART SUPPLEMENTAL SCALE SQ SCH ×2 (05:56→12:40)
[2016-07-04] MEDS: SODIUM CHLOR 0.9% 1000 ML INJ 1,000 ML IV SCH (07:21)
[2016-07-04] MEDS: CHLORHEXIDINE 0.12% (ORAL KIT) 15 ML CUP MT SCH (08:00)
--- NOTE | 2016-07-04 08:40 | HHI.NPPN ---
Subjective History of Present Illness 46 year old male with CHF/Pul edema ESRD after missing treatment he was intubated Additional Remarks I was told that he dialyzes TTS at [facility]. We will dialyze him today so that he can continue dialysis TTS after discharge. Review of Systems General Constitutional: Fatigue Respiratory Lungs: Cough Objective Data Data 07/03/16 07/04/16 19:00 07:00 Intake Total 480 ml 480 ml Output Total 450 ml Balance 30 ml 480 ml Intake Oral 480 ml 480 ml Output Urine Total 450 ml # Bowel Movements 0 Vital Signs Date Time Temp Pulse Resp B/P Pulse Ox O2 Delivery O2 Flow Rate FiO2 07/04/16 08:23 99.1 81 16 148/67 97 07/04/16 08:22 97 Room Air 07/04/16 08:00 84 07/04/16 07:00 70 07/04/16 04:50 98.0 82 16 154/68 98 07/04/16 04:33 97 Room Air 07/04/16 03:00 80 07/03/16 23:30 98.0 77 16 159/76 98 07/03/16 23:30 97 Room Air 07/03/16 23:00 80 07/03/16 19:51 96 07/03/16 19:45 98.3 79 16 125/58 98 07/03/16 19:45 98 Nasal Cannula 2.00 07/03/16 19:00 82 07/03/16 18:00 75 07/03/16 17:00 84 07/03/16 16:02 78 07/03/16 15:30 98.7 78 16 142/65 96 07/03/16 15:20 97 Nasal Cannula 2.00 07/03/16 15:00 80 07/03/16 14:00 74 07/03/16 13:00 78 07/03/16 12:00 72 07/03/16 11:30 98.2 70 16 133/60 97 07/03/16 11:14 97 Nasal Cannula 2.00 07/03/16 11:00 70 07/03/16 10:37 94 Nasal Cannula 2.00 07/03/16 10:00 75 07/03/16 09:02 98 Nasal Cannula 2.00 07/03/16 09:01 98.3 71 16 151/73 99 07/03/16 09:00 77 -: 07/04/16 0319 07/04/169 Physical Exam General Appearance: Well Developed, Well Nourished Eyes Eye Exam: Pupils Equal Neck Neck Exam: Neck Supple Pulmonary Resp Exam: Breath Sounds Equal, Rhonchi Cardiology CV Exam: Regular, Normal Sinus Rhythm Gastrointestinal/Abdomen GI Exam: Soft, Non-Tender, Bowel Sounds Present Extremeties Extremities Exam: No Edema Assessment/Plan Problem List: (1) History of simultaneous kidney and pancreas transplant Plan: patient with failed renal transplant. Prograf dose increased to 3.5 mg PO BID due to low level. Also on Prednisone and Myfortic. (2) ESRD (end stage renal disease) on dialysis Plan: Patient has failed his kidney transplant Continue Renvela. Phosphorus is high at 6.5 Apparently he is non compliant. Dialysis today before discharge. (3) Flash pulmonary edema Plan: extubated (4) Respiratory failure Plan: improved, resolved. (5) Fever Plan: No fever since 07/01. Being treated for pneumonia. Plan patient can be discharged from renal standpoint. Problem Qualifiers (1) Respiratory failure: Qualified Code: J96.01 - Acute respiratory failure with hypoxia Nguyễn Banuelos MD Jul 04, 2016 08:40
[2016-07-04] MEDS: REMOVE OLD PATCH TD SCH (09:00)
[2016-07-04] MEDS: CEFEPIME INJ 1,000 MG in SODIUM CHLORIDE 0.9% INJ 100 ML IV SCH (09:00)
--- NOTE | 2016-07-04 09:47 | HHI.PR ---
Subjective Remarks Patient seen later at 1:52pm Patient feels better denies cp/sob denies fevers/chills stable vital signs had hemodialysis today Objective Vitals Vital Signs Date Time Temp Pulse Resp B/P Pulse Ox O2 Delivery O2 Flow Rate FiO2 07/04/16 08:23 99.1 81 16 148/67 97 07/04/16 08:22 97 Room Air 07/04/16 08:00 84 07/04/16 07:00 70 07/04/16 04:50 98.0 82 16 154/68 98 07/04/16 04:33 97 Room Air 07/04/16 03:00 80 07/03/16 23:30 98.0 77 16 159/76 98 07/03/16 23:30 97 Room Air 07/03/16 23:00 80 07/03/16 19:51 96 07/03/16 19:45 98.3 79 16 125/58 98 07/03/16 19:45 98 Nasal Cannula 2.00 07/03/16 19:00 82 07/03/16 18:00 75 07/03/16 17:00 84 07/03/16 16:02 78 07/03/16 15:30 98.7 78 16 142/65 96 07/03/16 15:20 97 Nasal Cannula 2.00 07/03/16 15:00 80 07/03/16 14:00 74 07/03/16 13:00 78 07/03/16 12:00 72 07/03/16 11:30 98.2 70 16 133/60 97 07/03/16 11:14 97 Nasal Cannula 2.00 07/03/16 11:00 70 07/03/16 10:37 94 Nasal Cannula 2.00 07/03/16 10:00 75 I/O 07/03/16 07/03/16 07/03/16 07/04/16 07/04/16 07/04/16 07:00 15:00 23:00 07:00 15:00 23:00 Intake Total 320 ml 480 ml 480 ml Output Total 450 ml Balance 320 ml 30 ml 480 ml Intake Oral 320 ml 480 ml 480 ml Output Urine Total 450 ml # Bowel Movements 0 Result Diagram: 07/04/1631807/04/16318 Imaging Last Impressions Chest X-Ray 07/01/16 0000 Signed Impressions: Service Date/Time: June 08:57 - CONCLUSION: Worsening bibasilar densities greater in the left lower lobe. Probable small left pleural effusion. Improvement of upper lobe densities on current study. Colt Vasquez MD Head CT 06/30/16 0621 Signed Impressions: Service Date/Time: Thursday, June 30, 2016 07:56 - CONCLUSION: Negative for an acute process. Garcia Jerome MD FACR Objective Remarks GENERAL: Patient is awake and alert, NAD on nasal canula - not in respiratory distress. SKIN: Warm and dry. HEAD: Normocephalic. EYES: No scleral icterus. No injection or drainage. NECK: Supple, trachea midline. No JVD or lymphadenopathy. CARDIOVASCULAR: Irregularly irregular, systolic III/ murmur RESPIRATORY: Breath sounds equal bilaterally. No accessory muscle use. Decreased bilaterally at the bases. GASTROINTESTINAL: Abdomen soft, non-tender, nondistended. MUSCULOSKELETAL: No cyanosis, or edema. BACK: Nontender without obvious deformity. No CVA tenderness. Medications and IVs Current Medications Medications (Trade) Dose Ordered Sig/Rukhsana Route Start Time Stop Time Status Last Admin Nitroglycerin/ Dextrose 250 ml @ 0 mls/hr TITRATE IV 06/30/16 06:30 06/30/16 06:37 Sodium Chloride 1,000 ml @ 5 mls/hr Q24H IV 06/30/16 07:21 06/30/16 08:20 (NS 1000 ml Inj) 1,000 ml @ 0 mls/hr Q0M PRN IV 06/30/16 10:50 07/02/16 09:13 Heparin Sodium (Porcine) 8000 units 8,000 units UNSCH PRN IVF 06/30/16 11:00 Sodium Chloride 1,000 ml @ 200 mls/hr Q5H PRN IV 06/30/16 10:50 (NS 1000 ml Inj) 1,000 ml @ 0 mls/hr Q0M PRN IV 06/30/16 10:50 (Mannitol Inj) 12.5 gm UNSCH PRN IV 06/30/16 11:00 (Albumin 25% Inj) 25 gm UNSCH PRN IV 06/30/16 11:00 (NS Flush) 5 ml UNSCH PRN IVF 06/30/16 11:00 (Zofran Inj) 4 mg UNSCH PRN IV 06/30/16 11:00 (Tylenol) 650 mg UNSCH PRN PO 06/30/16 11:00 07/01/16 07:45 (Benadryl) 25 mg UNSCH PRN PO 06/30/16 11:00 (Nitrostat Sl) 0.4 mg UNSCH PRN SL 06/30/16 11:00 (Catapres) 0.1 mg UNSCH PRN PO 06/30/16 11:00 (Gelfoam 12 Mm/7 Mm Top) 1 foam UNSCH PRN TOP 06/30/16 11:00 07/04/16 10:02 (Epogen Inj) 10,000 units UNSCH PRN IV 06/30/16 11:00 07/04/16 10:02 (NS Flush) 2 ml UNSCH PRN IVF 06/30/16 11:00 (NS Flush) 2 ml BID IVF 06/30/16 21:00 07/04/16 12:17 (Tylenol) 650 mg Q6H PRN PO 06/30/16 11:00 (Percocet 5-325 Mg) 1 tab Q4H PRN PO 06/30/16 11:00 (Morphine Inj) 2 mg Q2H PRN IV 06/30/16 11:00 (Peridex 0.12% Liq) 15 ml BID@08,20 MT 06/30/16 20:00 07/01/16 09:43 (Heparin Inj) 5,000 units Q12H SQ 06/30/16 12:00 07/04/16 12:16 Miscellaneous Information 1 Q361D XX 06/30/16 11:00 06/30/16 14:49 (Chlorhexidine 2% Cloth) 3 pack Taper DAILY@04 TOP 07/01/16 04:00 06/27/17 03:59 (Chlorhexidine 2% Cloth) 3 pack UNSCH PRN TOP 06/30/16 11:00 (Trandate Inj) 10 mg Q4H PRN IV PUSH 06/30/16 11:15 (Prograf) 0.5 mg BID@06,18 PO 06/30/16 18:00 07/04/16 05:54 (Ativan Inj) 2 mg Q2H PRN IVP 06/30/16 16:15 07/01/16 07:45 (NovoLOG SUPPLEMENTAL SCALE) 1 Q6HR SQ 06/30/16 18:00 07/04/16 12:40 (D50w (Vial) Inj) 25 ml UNSCH PRN IV 06/30/16 16:30 07/01/16 08:41 (Glucagon Inj) 1 mg UNSCH PRN IM/SQ 06/30/16 16:30 (Catapres) 0.3 mg BID PO 06/30/16 21:00 07/04/16 12:11 (Cardura) 4 mg BID PO 06/30/16 21:00 07/04/16 12:17 (Neurontin) 300 mg HS PO 06/30/16 21:00 07/03/16 20:56 (Apresoline) 100 mg TID PO 06/30/16 18:00 07/04/16 12:11 (Lopressor) 100 mg BID PO 06/30/16 21:00 07/04/16 12:16 (Myfortic Dr) 360 mg BID PO 06/30/16 21:00 07/04/16 12:34 (Deltasone) 5 mg DAILY PO 07/01/16 09:00 07/04/16 12:16 (Requip) 9 mg HS PO 06/30/16 21:00 07/03/16 20:55 (Renvela) 800 mg TID PO 06/30/16 18:00 07/04/16 12:16 (Valcyte) 450 mg MoWeFr PO 06/30/16 18:00 07/02/16 17:40 (Lipitor) 20 mg HS PO 06/30/16 21:00 07/03/16 20:56 Miscellaneous 1 ea 1 ea UNSCH PRN OTHER 06/30/16 17:30 Diltiazem HCl 125 mg/Sodium Chloride 125 ml @ 0 mls/hr TITRATE IV 07/01/16 08:15 (Maxipime Inj/NS Inj) 100 ml @ 200 mls/hr Q24H IV 07/01/16 09:00 07/04/16 09:00 (Habitrol 14 Mg Patch.24 Hr) 1 patch DAILY TD 07/02/16 09:00 07/04/16 12:15 Miscellaneous Information 1 DAILY TD 07/03/16 09:00 07/04/16 09:00 (Prograf) 3 mg BID@06,18 PO 07/02/16 18:00 07/04/16 05:54 (Mucinex Er) 1,200 mg BID PO 07/03/16 21:00 07/04/16 12:11 A/P Problem List: (1) Flash pulmonary edema ICD Code: J81.0 Status: Resolved Plan: Fast, edema secondary to noncompliance with hemodialysis per nephrology, patient is poorly noncompliant once home. Nephrology consulted and following. Continue immunomodulators including Prograf, mycophenolate and prednisone. (2) Respiratory failure ICD Code: J96.90 Status: Resolved Plan: Patient status post mechanical ventilation and extubated, monitor currently satting above 96% on 2 L nasal cannula. (3) ESRD (end stage renal disease) on dialysis ICD Code: N18.6 Status: Acute Plan: Follow nephrology recommendations. The following medications were adjusted as follows adjust Prograf 2.5 mg bid Myfortic 360 mg bid Prednisone 5 mg daily Tacrolimus level 3.5 adjust Tacrolimus to 3.5 mg bid (4) PNA (pneumonia) ICD Code: J18.9 Status: Acute Plan: Continue IV cefepime. Blood cultures negative 1. Sputum culture had light growth of normal respiratory radha. Negative for flu a and B. Will start Robitussin-DM for persistent cough. Incentive spirometry. (5) Afib ICD Code: I48.91 Status: Acute Plan: Seems to be rate controlled now. Continue metoprolol 100 mg by mouth twice a day (6) HTN (hypertension) ICD Code: I10 Status: Acute Plan: Hypertension with acceptable control for 150s. Continue antihypertensive medications. Assessment and Plan GI prophylaxis: PPI. DVT prophylaxis: SCDs, heparin subcutaneously. Discharge Planning Pending PT evaluation, possible discharge in a.m. Problem Qualifiers (1) Respiratory failure: Qualified Code: J96.01 - Acute respiratory failure with hypoxia (2) PNA (pneumonia): Qualified Code: J18.9 - Pneumonia of both lungs due to infectious organism, unspecified part of lung (3) Afib: Qualified Code: I48.2 - Chronic atrial fibrillation (4) HTN (hypertension): Qualified Code: I10 - Essential hypertension Sal Schneider MD Jul 04, 2016 09:47
[2016-07-04] MEDS: GELATIN 12 MM/7 MM FOAM TOP PRN (10:02)
[2016-07-04] MEDS: hydrALAZINE HCL 100 MG TAB PO SCH ×3 (12:11→17:18)
[2016-07-04] MEDS: guaiFENesin E.R. 600 MG TAB PO SCH (12:11)
[2016-07-04] MEDS: cloNIDine HCL 0.3 MG TAB PO SCH (12:11)
[2016-07-04] MEDS: NICOTINE 14 MG/24 HR PATCH TD SCH (12:15)
[2016-07-04] MEDS: HEPARIN SODIUM - SQ 10,000 UNITS/ML VIAL SQ SCH (12:16)
[2016-07-04] MEDS: predniSONE 5 MG TAB PO SCH (12:16)
[2016-07-04] MEDS: METOPROLOL TARTRATE 100 MG TAB PO SCH (12:16)
[2016-07-04] MEDS: SEVELAMER CARBONATE 800 MG TAB PO SCH ×3 (12:16→17:19)
[2016-07-04] MEDS: DOXAZOSIN MESYLATE 4 MG TAB PO SCH (12:17)
[2016-07-04] MEDS: SODIUM CHLORIDE 0.9% FLUSH 5 ML FLUSH IVF SCH (12:17)
[2016-07-04] MEDS: MYCOPHENOLATE SODIUM 360 MG DELAYED RELEASE TAB PO SCH (12:34)
[2016-07-04] MEDS ORDERED: TACR0.5 PO (15:09)
[2016-07-04] MEDS ORDERED: TACR1 PO (15:09)
[2016-07-04] MEDS ORDERED: CEFU1TAB20 PO (15:14)
--- NOTE | 2016-07-04 16:33 | HHI.DCPOC ---
Discharge Care Plan Diagnosis: (1) PNA (pneumonia) (2) Afib (3) HTN (hypertension) (4) Fever (5) Respiratory failure (6) Flash pulmonary edema (7) ESRD (end stage renal disease) on dialysis (8) History of simultaneous kidney and pancreas transplant (9) Status post kidney transplant Goals to Promote Your Health * To prevent worsening of your condition and complications * To maintain your health at the optimal level Directions to Meet Your Goals Take your medications as prescribed Follow your dietary instruction Follow activity as directed Keep your appointments as scheduled Take your immunizations and boosters as scheduled If your symptoms worsen call your PCP, if no PCP go to Urgent Care Center or Emergency Room Smoking is Dangerous to Your Health. Avoid second hand smoke Call the 24-hour hour crisis hotline for domestic abuse at Sal Schneider MD Jul 04, 2016 16:33
--- NOTE | 2016-07-04 16:43 | HHI.DS ---
Discharge Summary Admission Date Jun 30, 2016 at 08:35 Discharge Date: Jul 04, 2016 Admitting Diagnosis hypertensive emergency, respiratory failure (1) Flash pulmonary edema ICD Code: J81.0 Diagnosis: Principal (2) Respiratory failure ICD Code: J96.90 Diagnosis: Principal (3) ESRD (end stage renal disease) on dialysis ICD Code: N18.6 Diagnosis: Principal (4) PNA (pneumonia) ICD Code: J18.9 Diagnosis: Principal (5) Afib ICD Code: I48.91 Diagnosis: Principal (6) HTN (hypertension) ICD Code: I10 Diagnosis: Principal Procedures none Brief History - From Admission History of Present Illness HPI 46-year-old male with a medical history significant for renal/pancreatic transplant in 2014 who underwent removal of his transplanted kidney at [facility] a few months ago as it had never function per Dr. Salas's final rail cutter. Patient has not been very compliant with his hemodialysis and missed hemodialysis for about 1 week per documentation and was brought to the ER with shortness of breath/severe respiratory distress which required emergent intubation and he was placed on mechanical ventilation. He had a systolic blood pressure of 230s on arrival in the ER and was given nitroglycerin x 1. Chest x-ray revealed pulmonary edema. He was accepted for admission by critical care medicine service. He has already been evaluated by Dr. Salas's final rail cutter was arranged for emergent hemodialysis today in the ER. When I evaluated the patient earlier he was sedated with propofol him arousable, orally intubated on mechanical ventilation. He has an AV fistula in his right forearm for dialysis. [facility] Past Medical History Narrative Medical List of his past medical history reviewed from the nursing note. Arthritis: Yes Asthma: No Autoimmune Disease: No Anxiety: No Depression: No Heart Rhythm Problems: No Cancer: No Cardiovascular Problems: Yes Chest Pain: Yes Congestive Heart Failure: No COPD: No Cerebrovascular Accident: No Diabetes: Yes (HX OF, BEFORE PANCREATIC TRANSPLANT IN September,) Patient Takes Glucophage: No Diminished Hearing: No Endocrine: No Gastrointestinal Disorders: Yes (REFLUX) GERD: Yes Genitourinary: No Headaches: Yes (NOT OFTEN) Hepatitis: No Hiatal Hernia: No Hypertension: Yes Immune Disorder: No Kidney Stones: No Musculoskeletal: Yes (RESTLESS LEG SYNDROME) Neurologic: No Psychiatric: No Reproductive: Yes (LOW TESTOSTERONE) Respiratory: No Immunizations Current: No Migraines: No Renal Failure: Yes (HX OF; KIDNEY TRANSPLANT IN September,) Seizures: No Sleep Apnea: No Thyroid Disease: No Ulcer: No Tetanus Vaccination: < 5 Years Influenza Vaccination: Yes Past Surgical History Abdominal Surgery: Yes (PANCREAS TRANSPLANT, KIDNEY TRANSPLANT) AICD: No Body Medical Devices: PERITONEAL DIALYSIS CATHETER Joint Replacement: No Pacemaker: No Thoracic Surgery: Yes (PERITONEAL DIALYSIS CATHETER; FISTULA RT ARM) Other Surgery: Yes (TUBE PLACEMENT FOR PERITITONEAL DIALYSIS) Social History Alcohol Use: No Tobacco Use: Yes (06/28 PPD) Substance Use: No Allergies-Medications (Allergen,Severity, Reaction): Coded Allergies: No Known Allergies (Unverified , 08/01/15) Comments No known drug allergies. Reported Meds & Prescriptions Reported Meds & Active Scripts Active Reported Rapamune 1 mg (Sirolimus) 1 Mg Tab 2 Tab PO DAILY Rapamune 1 mg (Sirolimus) 1 Mg Tab 3 Tab PO DAILY Simvastatin 10 mg (Simvastatin) 10 Mg Tab 1 Tab PO HS Cardura 4 mg (Doxazosin Mesylate) 4 Mg Tab 1 Tab PO DAILY Gabapentin 300 Mg Cap 300 Mg PO DAILY Requip 3 mg (ROPINIROLE HYDROCHLORIDE 3 mg) 3 Mg Tab 1 Tab PO HS Vitamin D-1000 (Cholecalciferol) 1,000 Unit Tab 1,000 Unit PO WEEKLY Protonix (Pantoprazole Sodium) 40 Mg Tabdr 40 Mg PO DAILY Dapsone 100 mg (Dapsone) 100 Mg Tab 1 Tab PO WEEKLY Aspir-81 (Aspirin) 81 Mg Tab 81 Mg PO DAILY Myfortic (Mycophenolate Sodium) 360 Mg Tab 360 Mg PO BID Prednisone 5 Mg/5 Ml Swapna 5 Mg PO DAILY Hydralazine HCl 10 Mg Tab 10 Mg PO TID Metoprolol Tartrate 100 mg (Metoprolol Tartrate) 100 Mg Tab 100 Mg PO BID CBC/BMP: 07/04/16 0319 07/04/16 0319 Significant Findings Laboratory Tests Test 07/02/16 07/03/16 07/04/16 04:25 05:08 03:19 White Blood Count 16.8 TH/MM3 13.5 TH/MM3 11.3 TH/MM3 (4.0-11.0) (4.0-11.0) (4.0-11.0) Red Blood Count 2.91 MIL/MM3 2.86 MIL/MM3 2.92 MIL/MM3 (4.50-5.90) (4.50-5.90) (4.50-5.90) Hemoglobin 8.5 GM/DL 8.2 GM/DL 8.3 GM/DL (13.0-17.0) (13.0-17.0) (13.0-17.0) Hematocrit 26.2 % 25.5 % 25.8 % (39.0-51.0) (39.0-51.0) (39.0-51.0) Red Cell Distribution Width 18.9 % 18.8 % 18.5 % (11.6-17.2) (11.6-17.2) (11.6-17.2) Neutrophils (%) (Auto) 86.6 % 81.9 % 78.0 % (16.0-70.0) (16.0-70.0) (16.0-70.0) Lymphocytes (%) (Auto) 1.8 % 2.4 % 3.8 % (9.0-44.0) (9.0-44.0) (9.0-44.0) Monocytes (%) (Auto) 9.0 % (0.0-8.0) 9.6 % (0.0-8.0) 9.4 % (0.0-8.0) Neutrophils # (Auto) 14.6 TH/MM3 11.1 TH/MM3 8.8 TH/MM3 (1.8-7.7) (1.8-7.7) (1.8-7.7) Lymphocytes # (Auto) 0.3 TH/MM3 0.3 TH/MM3 0.4 TH/MM3 (1.0-4.8) (1.0-4.8) (1.0-4.8) Monocytes # (Auto) 1.5 TH/MM3 1.3 TH/MM3 1.1 TH/MM3 (0-0.9) (0-0.9) (0-0.9) Blood Urea Nitrogen 47 MG/DL (7-18) 36 MG/DL (7-18) 44 MG/DL (7-18) Creatinine 7.67 MG/DL 6.14 MG/DL 7.17 MG/DL (0.60-1.30) (0.60-1.30) (0.60-1.30) Estimat Glomerular Filtration 8 ML/MIN (>89) 10 ML/MIN (>89) 8 ML/MIN (>89) Rate Random Glucose 130 MG/DL 136 MG/DL 112 MG/DL (74-106) (74-106) (74-106) Calcium Level 7.9 MG/DL 8.3 MG/DL (8.5-10.1) (8.5-10.1) Phosphorus Level 6.9 MG/DL 6.5 MG/DL (2.5-4.9) (2.5-4.9) Aspartate Amino Transf 40 U/L (15-37) (AST/SGOT) Alkaline Phosphatase 174 U/L 135 U/L (45-117) (45-117) Total Protein 5.6 GM/DL 5.5 GM/DL (6.4-8.2) (6.4-8.2) Albumin 2.5 GM/DL 2.3 GM/DL (3.4-5.0) (3.4-5.0) Tacrolimus (Prograf) Level 3.5 NG/ML (5.0-20.0) Eosinophils (%) (Auto) 5.5 % (0.0-4.0) 8.2 % (0.0-4.0) Eosinophils # (Auto) 0.7 TH/MM3 0.9 TH/MM3 (0-0.4) (0-0.4) Imaging Last Impressions Chest X-Ray 07/01/16 0000 Signed Impressions: Service Date/Time: June 08:57 - CONCLUSION: Worsening bibasilar densities greater in the left lower lobe. Probable small left pleural effusion. Improvement of upper lobe densities on current study. Colt Vasquez MD Head CT 06/30/16 0621 Signed Impressions: Service Date/Time: Thursday, June 30, 2016 07:56 - CONCLUSION: Negative for an acute process. Garcia Jerome MD FACR PE at Discharge GENERAL: Patient is awake and alert, NAD on nasal canula - not in respiratory distress. SKIN: Warm and dry. HEAD: Normocephalic. EYES: No scleral icterus. No injection or drainage. NECK: Supple, trachea midline. No JVD or lymphadenopathy. CARDIOVASCULAR: Irregularly irregular, systolic III/ murmur RESPIRATORY: Breath sounds equal bilaterally. No accessory muscle use. Decreased bilaterally at the bases. GASTROINTESTINAL: Abdomen soft, non-tender, nondistended. MUSCULOSKELETAL: No cyanosis, or edema. BACK: Nontender without obvious deformity. No CVA tenderness. Hospital Course (1) Flash pulmonary edema Flash pulmonary edema secondary to noncompliance with hemodialysis per nephrology, patient is poorly noncompliant once home. Nephrology consulted and following. Continue immunomodulators including Prograf, mycophenolate and prednisone. (2) Respiratory failure Plan: Patient status post mechanical ventilation and extubated, monitor currently satting above 96% on 2 L nasal cannula. (3) ESRD (end stage renal disease) on dialysis Plan: Follow nephrology recommendations. The following medications were adjusted as follows Prograf dose adjusted to 3.5 mg bid as per nephrology recommendations. Myfortic 360 mg bid Prednisone 5 mg daily Tacrolimus level 3.5 adjust Tacrolimus to 3.5 mg bid (4) PNA (pneumonia) Plan: Treated w IV Cefepime Blood cultures negative to date Sputum culture had light growth of normal respiratory radha. Negative for flu a and B. Rx Robitussin-DM for persistent cough. Incentive spirometry. (5) Afib Plan: Initially treated with Cardizem and amiodarone drip. Rate was controlled and Cardizem and amiodarone drip were discontinued. Continue metoprolol 100 mg by mouth twice a day. The cardiac rhythm was done and it showed normal systolic function with an estimated EF of 55-60% with normal wall motion, without regional wall motion abnormalities. Mildly calcified annulus was observed in the mitral valve. (6) HTN (hypertension) Plan: Hypertension with acceptable control. Continue home antihypertensive medications. The patient currently on clonidine 0.3 mg by mouth twice a day, Cardura 4 mg by mouth twice a day, metoprolol tartrate and milligrams by mouth twice a day Arelis patient was controlled with elevated total when necessary. Assessment and Plan GI prophylaxis: PPI. DVT prophylaxis: SCDs, heparin subcutaneously. Pt Condition on Discharge: Stable Discharge Disposition: Discharge Home Discharge Time: <= 30 minutes Discharge Instructions DIET: Follow Instructions for: Diabetic Diet, Renal Failure Diet Activities you can perform: Regular-No Restrictions Activities to Avoid: Prolonged Standing, Strenuous Activity Follow up Referrals: Nephrology - 2-3 Days with Nguyễn Banuelos MD Continue outpatient hemodyalsis on tuesday, and tuesday schedule or as indicated by final rail cutter PCP Follow-up - 1 Week New Medications: Cefuroxime (Cefuroxime) 500 Mg Tab 500 MG PO BID Infection #20 Ref 0 TAB Tacrolimus (Prograf) 0.5 Mg Cap 0.5 MG PO BID@06,18 inmunesupresion #60 CAP Tacrolimus (Prograf) 1 Mg Cap 3 MG PO BID@,18 [place]ion #60 CAP Continued Medications: Acetaminophen-Codeine (Tylenol-Codeine #3) 300-30 mg Tab 1-2 TAB PO Q4-6H PRN PAIN Ref 0 TAB Clonidine (Clonidine) 0.3 Mg Tab 0.3 MG PO BID Blood Pressure Management #60 Ref 0 TAB Dapsone (Dapsone) 100 Mg Tab 100 MG PO WEEKLY #30 Ref 0 TAB Doxazosin (Cardura) 4 Mg Tab 4 MG PO BID #30 Ref 0 TAB Ergocalciferol (Drisdol) 50,000 Unit Cap 34641 UNITS PO Q7D Nutritional Supplement #30 Ref 0 CAP Gabapentin (Gabapentin) 300 Mg Cap 300 MG PO HS #30 Ref 0 CAP Hydralazine (Hydralazine) 100 Mg Tab 100 MG PO TID Take with meals Blood Pressure Management Ref 0 TAB Metoprolol Tartrate (Metoprolol Tartrate) 100 Mg Tab 100 MG PO BID #60 Ref 0 TAB Mycophenolate (Myfortic) 360 Mg Tab 360 MG PO BID Immunosuppression #120 Ref 0 TAB Pantoprazole (Pantoprazole) 40 Mg Tab 40 MG PO DAILY Reflux #30 Ref 0 TAB Prednisone (Prednisone) 5 Mg Tab 5 MG PO DAILY @ 0800 Ref 0 TAB Ropinirole (Requip) 3 Mg Tab 9 MG PO HS #30 Ref 0 TAB Sevelamer HCl (Renagel) 800 Mg Tab 800 MG PO TID Control phosphorus levels #90 Ref 0 TAB Simvastatin (Zocor) 10 Mg Tab 10 MG PO HS Cholesterol Management #30 Ref 0 TAB Valganciclovir (Valganciclovir) 450 Mg Tab 450 MG PO MoWeFr Mgmt Viral Infection #60 Ref 0 TAB Discontinued Medications: Tacrolimus (Prograf) 1 Mg Cap 2 MG PO DAILY @ 0800 Prevent Transplant Reject #30 Ref 0 CAP Tacrolimus (Prograf) 1 Mg Cap 3 MG PO DAILY @ 2000 Prevent Transplant Reject #30 Ref 0 CAP Sal Schneider MD Jul 04, 2016 16:43
== END 2016-07-04 18:10 | disposition home or self-care (01) | DRG 208 ==
LOC: NEPE 06:06 → NEDA 08:35 → HCVR 17:21 → HCIS 07-02 14:38
PROVIDERS: ADMIT Hospitalist; ATTEND Hospitalist
PROC: 5A1945Z Respiratory Ventilation, 24-96 Consecutive Hours (ICD-10-PCS; principal; 2016-06-30)
PROC: 0BH17EZ Insertion of Endotracheal Airway into Trachea, Via Natural or Artificial Opening (ICD-10-PCS; 2016-06-30)
PROC: 5A1D60Z (ICD-10-PCS; 2016-06-30)
DX: J96.01 Acute respiratory failure with hypoxia (principal); J81.0 Acute pulmonary edema; I13.2 Hypertensive heart and chronic kidney disease with heart failure and with stage 5 chronic kidney disease, or end stage renal disease; J18.9 Pneumonia, unspecified organism; T86.12 Kidney transplant failure; N18.6 End stage renal disease; E87.2 Acidosis; Z94.83 Pancreas transplant status; N25.81 Secondary hyperparathyroidism of renal origin; I16.1 Hypertensive emergency; G25.81 Restless legs syndrome; I48.0 Paroxysmal atrial fibrillation; I48.91 Unspecified atrial fibrillation; E11.22 Type 2 diabetes mellitus with diabetic chronic kidney disease; E87.5 Hyperkalemia; E11.649 Type 2 diabetes mellitus with hypoglycemia without coma; I50.9 Heart failure, unspecified; D64.9 Anemia, unspecified; K21.9 Gastro-esophageal reflux disease without esophagitis; E87.70 Fluid overload, unspecified; F17.210 Nicotine dependence, cigarettes, uncomplicated; M19.90 Unspecified osteoarthritis, unspecified site; Z79.4 Long term (current) use of insulin; Z90.5 Acquired absence of kidney; Z91.15 Patient's noncompliance with renal dialysis; Z85.72 Personal history of non-Hodgkin lymphomas
CPT/HCPCS: 31500; 36600; 70450; 71010; 76937; 80048; 80053; 80197; 82550; 82805; 82948; 83605; 83735; 83880; 84100; 84443; 84484; 85025; 85610; 86850; 86900; 86901; 87040; 87070; 87205; 87641; 87804; 90935; 93005; 93306; 94002; 94003; 94150; 94640; 94664; 96365; 96366; 96368; 96374; 96375; C9113; J0692; J1644; J1815; J2060; J3010; J3370; J7030; J7050; J7507; J7512; J7518; Q4081

== ENCOUNTER 2016-07-20 01:39 | Inpatient (IN) | payer MEDICARE, OTHER ==
[~2016-07-20] VITALS: Ht 172.7 cm; Wt 70.0 kg
[2016-07-20] VITALS (18 sets, daily range): BP systolic 138–256; BP diastolic 65–140; PULSE 83–130; RESP 20–30; TEMP 98.6; O2SAT 76–100
[~2016-07-20 01:39] MED LIST changes: -ASPI81TA82 PO; +CEFU1TAB20 PO; +CLON0.3T PO; -DAPS100 PO; +DAPS1TAB2 PO; +DRIS50002 PO; -GABA300C3 PO; +GABA300C5 PO; +HYDR-3801 PO; -HYDR10TA23 PO; +PANT40TA3 PO; -PRED5SOL PO; +PRED5TAB PO; -PROT40TA PO; +SEVE800T PO; -SIMV10 PO; -SIRO1 PO; +TACR0.5 PO; +TACR1 PO; +TYLETAB34 PO; +VALG1TAB PO; -VITATAB25 PO; +ZOCO10TA PO
[2016-07-20] MEDS ORDERED: SODIUM CHLORIDE 0.9% FLUSH 5 ML FLUSH IVF PRN ×3 (02:00→04:15)
[2016-07-20] MEDS ORDERED: NITROGLYCERIN-DEXTROSE INJ 250 ML ONE (02:02)
--- NOTE | 2016-07-20 02:12 | PD ---
HPI Chief Complaint: Respiratory Symptoms Time Seen by Provider: 01:46 Travel History International Travel<30 days: No Contact w/Intl Traveler<30days: No Traveled to known affect area: No History of Present Illness HPI The patient is a 46 year old male who presents to the [facility] emergency department with a history of shortness of breath that began a few hours prior to arrival. The patient according to ambulance services has also been having a cough with congestion. They report that his cough has been productive of sputum. The patient on arrival to this facility is tripoding and having difficulty speaking related to his shortness of breath. He arrives diaphoretic and hypertensive. The patient is a hemodialysis patient. He reports that he last had hemodialysis on Tuesday and is due to have his dialysis again in the morning. He reports that he did not have a full dialysis session on Tuesday as he left a half hour early. The patient was last evening and admitted to the hospital on June 30 of this year related to shortness of breath and severe respiratory distress. The patient was intubated during that admission. The patient reports that he does smoke. He denies any history of COPD, however he does report that he uses inhalers. The patient denies any recent fevers, neck pain, chest pain, abdominal pain, vomiting, diarrhea, or neurologic symptoms. [facility] Past Medical History Narrative Medical The patient's past medical history is obtained from reviewing the electronic medical record as the patient has conversational dyspnea with respiratory distress on arrival. 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 Arthritis: Yes Asthma: No Autoimmune Disease: No Anxiety: No Depression: No Heart Rhythm Problems: No Cancer: No Cardiovascular Problems: Yes Chest Pain: Yes Congestive Heart Failure: No COPD: No Cerebrovascular Accident: No Diabetes: Yes Diminished Hearing: No Endocrine: No Gastrointestinal Disorders: Yes (REFLUX) GERD: Yes Genitourinary: No Headaches: Yes (NOT OFTEN) Hepatitis: No Hiatal Hernia: No Hypertension: Yes Immune Disorder: No Kidney Stones: No Musculoskeletal: Yes (RESTLESS LEG SYNDROME) Neurologic: No Psychiatric: No Reproductive: Yes (LOW TESTOSTERONE) Respiratory: No Immunizations Current: No Migraines: No Renal Failure: Yes (HX OF; KIDNEY TRANSPLANT IN September,) Seizures: No Sleep Apnea: No Thyroid Disease: No Ulcer: No Past Surgical History Narrative Surgical The patient's past surgical history is significant for a pancreatic and kidney transplant. Status post kidney transplant removal after failure of the transplant, history of peritoneal dialysis catheter placement and removal, history of a fistula placement in the right arm. Abdominal Surgery: Yes (PD catheter placed twice and removed twice) AICD: No Body Medical Devices: hx of insulin pump Cardiac Surgery: No Ear Surgery: No Endocrine Surgery: No Eye Surgery: Yes Genitourinary Surgery: No Joint Replacement: No Oral Surgery: Yes (edentulous) Pacemaker: No Thoracic Surgery: No Other Surgery: Yes (TUBE PLACEMENT FOR PERITITONEAL DIALYSIS) Social History Alcohol Use: No Tobacco Use: Yes (06/28 PPD) Substance Use: No Allergies-Medications (Allergen,Severity, Reaction): Coded Allergies: No Known Allergies (Unverified , 07/20/16) Reported Meds & Prescriptions Reported Meds & Active Scripts Active Prograf (Tacrolimus) 1 Mg Cap 3 Mg PO BID@ Prograf (Tacrolimus) 0.5 Mg Cap 0.5 Mg PO BID@ Reported Lyrica (Pregabalin) 75 Mg Cap 75 Mg PO DAILY Multivitamin Adults (Multiple Vitamins W/ Minerals) 1 Tab 1 Tab PO DAILY Clotrimazole Esthela (Clotrimazole) 10 Mg Troc 10 Mg PO TID Aspirin EC (Aspirin) 81 Mg Tabdr 81 Mg PO DAILY Requip (Ropinirole) 3 Mg Tab 9 Mg PO HS Renagel (Sevelamer HCl) 800 Mg Tab 800 Mg PO TID Drisdol (Ergocalciferol) 50,000 Unit Cap 50,000 Units PO Q7D Dapsone 100 Mg Tab 100 Mg PO WEEKLY Cardura (Doxazosin Mesylate) 4 Mg Tab 4 Mg PO BID Gabapentin 300 Mg Cap 300 Mg PO HS Hydralazine (Hydralazine HCl) 100 Mg Tab 100 Mg PO TID Take with meals Metoprolol Tartrate 100 Mg Tab 100 Mg PO BID Myfortic (Mycophenolate Sodium) 360 Mg Tab 360 Mg PO BID Pantoprazole (Pantoprazole Sodium) 40 Mg Tab 40 Mg PO DAILY Prednisone 5 Mg Tab 5 Mg PO DAILY @ 0800 Zocor (Simvastatin) 10 Mg Tab 10 Mg PO HS Valganciclovir 450 Mg Tab 450 Mg PO MOWEFR Tylenol-Codeine #3 (Acetaminophen-Codeine) 300-30 mg Tab 1-2 Tab PO Q4-6H PRN Clonidine (Clonidine HCl) 0.3 Mg Tab 0.3 Mg PO TID Review of Systems Except as stated in HPI: all other systems reviewed are Neg General / Constitutional: No: Fever Eyes: No: Visual changes HENT: Positive: Congestion, No: Headaches Cardiovascular: Positive: Dyspnea on exertion, No: Chest Pain or Discomfort Respiratory: Positive: Cough, Shortness of Breath Gastrointestinal: No: Abdominal Pain Genitourinary: No: Dysuria Musculoskeletal: No: Pain Skin: No Rash Neurologic: No: Weakness Psychiatric: No: Depression Endocrine: No: Polydipsia Hematologic/Lymphatic: No: Easy Bruising Physical Exam Narrative General: The patient is a well-developed, thin appearing male, obviously short of breath on arrival, tripoding with conversational dyspnea, diaphoresis, hypertension. Head and Neck exam: Head is normocephalic atraumatic. Eyes: Pupils are equal round and reactive to light. Nose: Midline septum with pink mucous membranes Mouth: Dentition unremarkable. Moist mucus membranes. Posterior oropharynx is not erythematous. No tonsillar hypertrophy. Uvula midline. Airway patent. Neck: No palpable lymphadenopathy. No nuchal rigidity. No thyromegaly. Cardiovascular: Sinus tachycardia in the low 100s without murmurs, gallops, or rubs. No pulse deficit to the extremities on simultaneous auscultation and palpation of his radial artery. Lungs: Decreased air movement bilaterally with accessory muscle use, tripoding, paroxysmal abdominal breathing noted. Abdomen: Soft, without tenderness to palpation in all 4 quadrants of the abdomen. No guarding, rebound, or rigidity. Normal bowel sounds are audible. Extremities: No clubbing, cyanosis, or edema. 2+ pulses in all 4 extremities. No calf tenderness on palpation. Back: No spinous process tenderness to palpation. No costovertebral angle tenderness to palpation. Neurologic Exam: Grossly nonfocal. Skin Exam: No rash noted. Intact skin that is warm and diaphoretic. Data Data Last Documented VS Vital Signs Date Time Temp Pulse Resp B/P Pulse Ox O2 Delivery O2 Flow Rate FiO2 07/20/16 04:00 100 50 07/20/16 04:00 87 26 172/87 BiPAP 07/20/16 02:11 15 07/20/16 01:50 98.6 Orders Complete Blood Count With Diff (07/20/16 01:47) Comprehensive Metabolic Panel (07/20/16 01:47) B-Type Natriuretic Peptide (07/20/16 01:47) Act Partial Throm Time (Ptt) (07/20/16 01:47) Prothrombin Time / Inr (Pt) (07/20/16 01:47) Magnesium (Mg) (07/20/16 01:47) Ckmb (Isoenzyme) Profile (07/20/16 01:47) Troponin I (07/20/16 01:47) Iv Access Insert/Monitor (07/20/16 01:47) Electrocardiogram (07/20/16 01:47) Ecg Monitoring (07/20/16 01:47) Oximetry (07/20/16 01:47) Oxygen Administration (07/20/16 01:47) Chest, Single Ap (07/20/16 01:47) Sodium Chloride 0.9% Flush (Ns Flush) (07/20/16 02:00) Arterial Blood Gas (Abg) (07/20/16 01:47) Sodium Chloride 0.9% Flush (Ns Flush) (07/20/16 02:00) Resp Bipap / Cpap Non Invas Vt (07/20/16 01:47) Nitroglycerin-Dextrose Inj (Nitroglyceri (07/20/16 02:15) Albuterol-Ipratropium Neb (Duoneb Neb) (07/20/16 02:15) Methylprednisolone So Succ Inj (Solumedr (07/20/16 02:15) Nitroglycerin-Dextrose Inj (Nitroglyceri (07/20/16 02:02) Lactic Acid Sepsis Protocol (07/20/16 02:03) Blood Culture (07/20/16 02:03) ^ Blood Flow Rate (07/20/16 04:06) ^ Dialysate Flow Rate (07/20/16 04:06) ^ Dialyzer (07/20/16 04:06) ^ Concentrate (07/20/16 04:06) ^ Acid Concentrate (07/20/16 04:06) ^ Length Of Dialysis (07/20/16 04:06) ^ Frequency Of Dialysis (07/20/16 04:06) ^ Dialysis Obtain (07/20/16 04:06) ^ Needle Size (07/20/16 04:06) ^ Dialysis Schedule (07/20/16 04:06) Resp Oxygen Theodore C Titrat 1-4 L (07/20/16 ) ^ Dialysis Weight (07/20/16 04:06) ^ Obtain As Needed (07/20/16 04:06) Sodium Chlor 0.9% 1000 Ml Inj (Ns 1000 M (07/20/16 04:06) Heparin Inj (Heparin Inj) (07/20/16 04:15) Sodium Chlor 0.9% 1000 Ml Inj (Ns 1000 M (07/20/16 04:06) Sodium Chlor 0.9% 1000 Ml Inj (Ns 1000 M (07/20/16 04:06) Mannitol Inj (Mannitol Inj) (07/20/16 04:15) Albumin 25% Inj (Albumin 25% Inj) (07/20/16 04:15) Sodium Chloride 0.9% Flush (Ns Flush) (07/20/16 04:15) Ondansetron Inj (Zofran Inj) (07/20/16 04:15) Acetaminophen (Tylenol) (07/20/16 04:15) Diphenhydramine (Benadryl) (07/20/16 04:15) Nitroglycerin Sl (Nitrostat Sl) (07/20/16 04:15) Clonidine (Catapres) (07/20/16 04:15) Epoetin Dinh Inj (Epogen Inj) (07/20/16 04:15) Gelatin 12 Mm/7 Mm Top (Gelfoam 12 Mm/7 (07/20/16 04:15) Admit To Inpatient (07/20/16 ) Code Status (07/20/16 04:34) Vital Signs (Adult) ZAYNAB.Q1H (07/20/16 04:34) Activity Bed Rest (07/20/16 04:34) ^ Elevate Head Of Bed (07/20/16 04:34) Neuro Checks . ORDERED (07/20/16 04:34) Pantoprazole Inj (Protonix Inj) (07/20/16 09:00) Albuterol-Ipratropium Neb (Duoneb Neb) (07/20/16 08:00) Albuterol-Ipratropium Neb (Duoneb Neb) (07/20/16 04:45) Consult Nephrology (07/20/16 ) Supervisor [employer] / Telemetry (07/20/16 04:34) Heparin Inj (Heparin Inj) (07/20/16 04:45) Scd Bilateral/Knee High ZAYNAB.BID (07/20/16 04:34) ^ Initiate Protocol (07/20/16 04:34) ^ Instruction (07/20/16 04:34) [facility] [place]07/20/16 04:45) Chlorhexidine 2% Cloth (Chlorhexidine 2% (07/21/16 04:00) Chlorhexidine 2% Cloth (Chlorhexidine 2% (07/20/16 04:45) Mrsa Pcr Surveillance (07/20/16 04:34) Inpatient Certification (07/20/16 ) Admit Order (Ed Use Only) (07/20/16 04:37) Labs Laboratory Tests Test 07/20/16 07/20/16 02:15 03:48 White Blood Count 17.6 TH/MM3 Red Blood Count 3.74 MIL/MM3 Hemoglobin 10.4 GM/DL Hematocrit 33.7 % Mean Corpuscular Volume 90.1 FL Mean Corpuscular Hemoglobin 27.8 PG Mean Corpuscular Hemoglobin 30.8 % Concent Red Cell Distribution Width 20.6 % Platelet Count 329 TH/MM3 Mean Platelet Volume 9.5 FL Neutrophils (%) (Auto) 77.0 % Lymphocytes (%) (Auto) 5.1 % Monocytes (%) (Auto) 11.4 % Eosinophils (%) (Auto) 5.0 % Basophils (%) (Auto) 1.5 % Neutrophils # (Auto) 13.5 TH/MM3 Lymphocytes # (Auto) 0.9 TH/MM3 Monocytes # (Auto) 2.0 TH/MM3 Eosinophils # (Auto) 0.9 TH/MM3 Basophils # (Auto) 0.3 TH/MM3 CBC Comment DIFF FINAL Differential Comment Prothrombin Time 10.8 SEC Prothromb Time International 1.0 RATIO Ratio Activated Partial 27.6 SEC Thromboplast Time Sodium Level 137 MEQ/L Potassium Level 5.9 MEQ/L Chloride Level 100 MEQ/L Carbon Dioxide Level 24.1 MEQ/L Anion Gap 13 MEQ/L Blood Urea Nitrogen 55 MG/DL Creatinine 6.97 MG/DL Estimat Glomerular Filtration 9 ML/MIN Rate Random Glucose 358 MG/DL Lactic Acid Level 2.8 mmol/L Calcium Level 8.7 MG/DL Magnesium Level 2.4 MG/DL Total Bilirubin 0.4 MG/DL Aspartate Amino Transf 25 U/L (AST/SGOT) Alanine Aminotransferase 26 U/L (ALT/SGPT) Alkaline Phosphatase 207 U/L Total Creatine Kinase 82 U/L Troponin I 0.02 NG/ML B-Type Natriuretic Peptide 3767 PG/ML Total Protein 7.0 GM/DL Albumin 3.4 GM/DL Tacrolimus (Prograf) Level 0.3 NG/ML Blood Gas Puncture Site LT RADIAL Blood Gas Patient Temperature 98.6 Blood Gas HCO3 21 mmol/L Blood Gas Base Excess -3.8 mmol/L Blood Gas Oxygen Saturation 94 % Arterial Blood pH 7.35 Arterial Blood Partial 39 mmHg Pressure CO2 Arterial Blood Partial 314 mmHG Pressure O2 Arterial Blood Oxygen Content 13.0 Vol % Arterial Blood 4.0 % Carboxyhemoglobin Arterial Blood Methemoglobin 2.0 % Blood Gas Hemoglobin 9.3 G/DL Oxygen Delivery Device BiPAP Blood Gas Ventilator Setting IPAP12/EPAP5 Blood Gas Inspired Oxygen 100 % MDM Medical Decision Making Medical Screen Exam Complete: Yes Emergency Medical Condition: Yes Medical Record Reviewed: Yes Interpretation(s) Last Impressions Chest X-Ray 07/20/16 0147 Signed Impressions: Service Date/Time: Wednesday, July 20, 2016 02:06 - CONCLUSION: Diffuse bilateral interstitial pulmonary infiltrates. This can be seen with interstitial pulmonary edema versus pneumonia. Hi Persaud MD Differential Diagnosis Pulmonary edema, versus COPD exacerbation, versus hypertensive emergency Narrative Course During the course of the patients emergency department visit, the patients history, examination, and differential diagnosis were reviewed with the patient. The patient had IV access obtained and blood work sent for analysis. The patient was placed on a electronic device monitor with oximetry and blood pressure monitoring. An EKG was ordered. A chest x-ray was ordered. The patient's blood pressure was noted to be 250/130, the patient was started on a nitroglycerin drip. The patient was given one sublingual nitroglycerin by ambulance services prior to arrival. Respiratory therapy was called to the patient's bedside. The patient initially on room air was in the 70s. The patient was placed on a nonrebreather mask and prepared for placement on BiPAP. The patient's O2 saturation came up on a nonrebreather to 94-96%. The patient 's EKG on arrival shows a sinus tachycardia rate of 122, borderline left axis deviation, ST abnormality suspicious for early repolarization. The patient was provided a nitroglycerin drip which will be titrated to better control his blood pressure, Solu-Medrol 125 mg IV, DuoNeb 3. On the patient's nitroglycerin drip the patient's blood pressure slowly began to come down to a blood pressure in the 170s. The patients laboratory studies were reviewed and remarkable for a white count of 17.6, hemoglobin 10.4, platelets 329 with 77 neutrophils, lymphocytes 5.1, monocytes 11.4. Radiology studies were reviewed and remarkable for diffuse bilateral interstitial pulmonary infiltrates, interstitial pulmonary edema versus pneumonia. Based on the patient's examination and history this is most likely related to pulmonary edema. A call was placed out emergently to the patient's therapist occupational. Dr. Salas will be preparing for emergent dialysis for this patient. The patient's ABG on BiPAP appeared good, FiO2 was weaned to 50% from 100%. The patients results were discussed with the patient, including the plan of care. I explained that further testing and/ or monitoring is indicated based on the patients history, examination, and/ or laboratory findings. Therefore, I recommended admission for additional evaluation. The patient expressed understanding and was agreeable with this plan. The patient was admitted to the hospital in guarded condition and sent to a bed under the care of the middle school art teacher. Critical Care Narrative Aggregate critical care time was 42 minutes. Time to perform other separately billable procedures was not included in the critical care time. My time did not include minutes spent treating any other patients simultaneously or on activities that did not directly contribute to the patient's treatment. The services I provided to this patient were to treat and/or prevent clinically significant deterioration that could result in: [-] I provided critical care services requiring my management, as noted below: Chart data review, documentation time, medication orders and management, vital sign assessments/reviewing monitor data, ordering and reviewing lab tests, ordering and interpreting/reviewing x-rays and diagnostic studies, care of the patient and discussion of the patient with the admitting physicians. Physician Communication Physician Communication The patient's case was discussed with Dr. Berry who did agree to admit the patient for further evaluation and treatment at this time. The patient's case was discussed with Dr. Salas, the patient's therapist occupational. He will be scheduling the patient for emergent dialysis. Diagnosis Primary Impression: Respiratory distress Additional Impressions: Hypertensive emergency ESRD (end stage renal disease) on dialysis Admitting Information Admitting Physician Requests: Admit Vicky Enamorado MD Jul 20, 2016 02:12
[2016-07-20] MEDS ORDERED: NITROGLYCERIN-DEXTROSE INJ 250 ML IV ONE (02:15)
[2016-07-20] MEDS ORDERED: methylPREDNISolone SOD SUCC 125 MG/2 ML VIAL IVP ONE (02:15)
[2016-07-20] MEDS: RESP: ALBUTEROL 2.5 MG/IPRATROPIUM 0.5 MG NEB (SCH) INH ×3 (02:23→12:00)
[2016-07-20] MEDS ORDERED: LYRI75CA PO (02:24)
[2016-07-20] MEDS ORDERED: CLOT10TR PO (02:24)
[2016-07-20] MEDS ORDERED: ASPI81TA11 PO (02:24)
[2016-07-20] MEDS ORDERED: MULT1TAB84 PO (02:24)
--- NOTE | 2016-07-20 02:25 | RADRPT ---
EXAM DATE/TIME: 07/20/2016 02:06 [facility] COMPARISON: CHEST SINGLE AP, July 01, 2016, 8:57. INDICATIONS : Chest pain and short of breath. MEDICAL HISTORY : Diabetes mellitus type I. SURGICAL HISTORY : renal transplant. ENCOUNTER: Initial ACUITY: 1 day PAIN SCORE: 8/10 LOCATION: Bilateral chest FINDINGS: A single view of the chest demonstrates hyperaeration of the lung oliver with diffuse bilateral inter stitial infiltrates. The heart size is upper limits of normal. No definite pleural effusions are seen . The bony structures are stable.. CONCLUSION: Diffuse bilateral interstitial pulmonary infiltrates. This can be seen with interstitial pulmonary ed bridget versus pneumonia. Hi Persaud MD on July 20, 2016 at 2:22 Board Certified Radiologist. This report was verified electronically.
[2016-07-20 02:49] LABS: AUTOMATED NEUTROPHIL # 13.5 TH/MM3 (1.8-7.7); BASOPHIL # 0.3 TH/MM3 (0-0.2); BASOPHIL % 1.5 % (0.0-2.0); EOSINOPHIL # 0.9 TH/MM3 (0-0.4); HEMATOCRIT 33.7 % (39.0-51.0); HEMO FLAGS DIFF FINAL; LYMPH % 5.1 % (9.0-44.0); LYMPHOCYTE # 0.9 TH/MM3 (1.0-4.8); MEAN CELL VOLUME 90.1 FL (80.0-100.0); MEAN CORPUSCULAR HEMOGLOBIN 27.8 PG (27.0-34.0); MEAN CORPUSCULAR HGB CONC 30.8 % (32.0-36.0); MONO % 11.4 % (0.0-8.0); PLATELET COUNT 329 TH/MM3 (150-450); RED BLOOD COUNT 3.74 MIL/MM3 (4.50-5.90); RED CELL DISTRIBUTION WIDTH 20.6 % (11.6-17.2); WHITE BLOOD COUNT 17.6 TH/MM3 (4.0-11.0)
[2016-07-20 02:59] LABS: APTT (PATIENT) 27.6 SEC (24.3-30.1); PROTHROMBIN TIME - PATIENT 10.8 SEC (9.8-11.6)
[2016-07-20 03:05] LABS: ALKALINE PHOSPHATASE 207 U/L (45-117); TOTAL BILIRUBIN ADULT 0.4 MG/DL (0.2-1.0)
[2016-07-20 03:06] LABS: ALT (GPT) 26 U/L (12-78); ANION GAP 13 MEQ/L (5-15); AST (GOT) 25 U/L (15-37); BICARBONATE 24.1 MEQ/L (21.0-32.0); BLOOD UREA NITROGEN 55 MG/DL (7-18); CHLORIDE 100 MEQ/L (98-107); CREATINE KINASE 82 U/L (39-308); GLOMERULAR FILTRATION RATE 9 ML/MIN (>89); MAGNESIUM 2.4 MG/DL (1.5-2.5); POTASSIUM 5.9 MEQ/L (3.5-5.1); SODIUM (NA) 137 MEQ/L (136-145)
[2016-07-20 04:03] LABS: BLOOD GAS BASE EXCESS -3.8 mmol/L (-2-2); BLOOD GAS HCO3 21 mmol/L (22-26); BLOOD GAS O2 HGB SATURATION 94 % (90-100); BLOOD GAS PCO2 39 mmHg (38-42); BLOOD GAS PO2 314 mmHG (61-120); BLOOD GAS TOTAL HGB 9.3 G/DL (12.0-16.0); CRITICAL VALUE NO; OXYGEN DEVICE BiPAP; TEMP CORR TO 98.6
[2016-07-20 04:04] LABS: DRAW SITE LT RADIAL; FIO2 100 %; NUMBER OF ARTERIAL PUNCTURES 1; STAT YES; ULNAR PULSE PRESENT; VENT SETTINGS IPAP12/EPAP5
[2016-07-20] MEDS ORDERED: SODIUM CHLOR 0.9% 1000 ML INJ 1,000 ML IV PRN ×3 (04:06)
[2016-07-20] MEDS ORDERED: ALBUMIN HUMAN 25% 25 GM/100 ML BAGP IV PRN (04:15)
[2016-07-20] MEDS ORDERED: ONDANSETRON HCL 4 MG/2 ML VIAL IV PRN (04:15)
[2016-07-20] MEDS ORDERED: MANNITOL 12.5 GM/50 ML VIAL IV PRN (04:15)
[2016-07-20] MEDS ORDERED: EPOETIN ALFA 10,000 UNITS/ML VIAL IV PRN (04:15)
[2016-07-20] MEDS ORDERED: ACETAMINOPHEN 325 MG TAB PO PRN (04:15)
[2016-07-20] MEDS ORDERED: NITROGLYCERIN 0.4 MG SL 25 TABS/BTL SL PRN (04:15)
[2016-07-20] MEDS ORDERED: cloNIDine HCL 0.1 MG TAB PO PRN (04:15)
[2016-07-20] MEDS ORDERED: HEPARIN SODIUM - IV 10,000 UNITS/10 ML VIAL IVF PRN (04:15)
[2016-07-20] MEDS ORDERED: diphenhydrAMINE HCL 25 MG CAP PO PRN (04:15)
[2016-07-20] MEDS ORDERED: GELATIN 12 MM/7 MM FOAM TOP PRN (04:15)
[2016-07-20 04:42] LABS: LACTIC ACID GHOST NOT REPORTABLE
[2016-07-20] MEDS ORDERED: HEPARIN SODIUM - SQ 10,000 UNITS/ML VIAL SQ SCH (04:45)
[2016-07-20] MEDS ORDERED: RESP: ALBUTEROL 2.5 MG/IPRATROPIUM 0.5 MG NEB (PRN) INH (04:45)
[2016-07-20] MEDS ORDERED: CHLORHEXIDINE GLUCONATE 2 % 1 PACK (2 CLOTHS) TOP PRN (04:45)
[2016-07-20] MEDS ORDERED: MISCELLANEOUS NURSING INFORMATION XX SCH (04:45)
[2016-07-20] MEDS ORDERED: GLUCAGON 1 MG/ML VIAL OTHER PRN ×2 (05:30→10:15)
[2016-07-20] MEDS ORDERED: INSULIN NovoLIN REGULAR SUPPLEMENTAL SCALE SQ SCH (05:30)
[2016-07-20] MEDS ORDERED: DEXTROSE 50% IN WATER 50 ML VIAL(D50) IV PUSH PRN ×2 (05:30→10:15)
[2016-07-20] MEDS ORDERED: METOPROLOL TARTRATE 100 MG TAB PO SCH (09:00)
[2016-07-20] MEDS ORDERED: cloNIDine HCL 0.3 MG TAB PO SCH (09:00)
[2016-07-20] MEDS ORDERED: hydrALAZINE HCL 100 MG TAB PO SCH (09:00)
[2016-07-20] MEDS ORDERED: SEVELAMER CARBONATE 800 MG TAB PO SCH (09:00)
[2016-07-20] MEDS ORDERED: DOXAZOSIN MESYLATE 4 MG TAB PO SCH (09:00)
[2016-07-20] MEDS ORDERED: MULTIVITAMINS/MINERALS THERAPEUTIC TAB PO SCH (09:00)
[2016-07-20] MEDS ORDERED: PANTOPRAZOLE SODIUM 40 MG VIAL IV SCH (09:00)
[2016-07-20] MEDS ORDERED: ASPIRIN EC 81 MG TABEC PO SCH (09:00)
[2016-07-20] MEDS ORDERED: PREGABALIN 75 MG CAP PO SCH (09:00)
--- NOTE | 2016-07-20 09:54 | PD.CONS ---
HPI Service Nephrology Consult Requested By Dr. Enamorado Reason for Consult ESRD with pulmonary edema Primary Care Physician Oxana Salas MD History of Present Illness Patient is a 46-year-old white male with history of end-stage renal disease, diabetes, hypertension, status post kidney and pancreas transplant however the kidney failed and he has been on hemodialysis initially was on peritoneal dialysis and converted to hemodialysis, he is current short his dialysis treatments signing AGAINST MEDICAL ADVICE and has frequent visits to the hospital as a result, he came in last night and increasing shortness of breath and has pulmonary edema he received emergent hemodialysis and 6 L were taken off , he is feeling better Review of Systems Constitutional: COMPLAINS OF: Fatigue Respiratory: COMPLAINS OF: Shortness of breath Psychiatric: COMPLAINS OF: Anxiety Past Family Social History Allergies: Coded Allergies: No Known Allergies (Unverified , 07/20/16) Past Medical History Insulin-dependent diabetes Hypertension Kidney and pancreas transplant Failure of kidney transplant ESRD Hemodialysis Noncompliance Past Surgical History AV fistula Tenckhoff catheter placement and removal Kidney transplant and pancreas transplant Removal of kidney transplant Eye surgery Reported Medications Reported Meds & Active Scripts Active Prograf (Tacrolimus) 1 Mg Cap 3 Mg PO BID@18 Prograf (Tacrolimus) 0.5 Mg Cap 0.5 Mg PO BID@18 Reported Lyrica (Pregabalin) 75 Mg Cap 75 Mg PO DAILY Multivitamin Adults (Multiple Vitamins W/ Minerals) 1 Tab 1 Tab PO DAILY Clotrimazole Esthela (Clotrimazole) 10 Mg Troc 10 Mg PO TID Aspirin EC (Aspirin) 81 Mg Tabdr 81 Mg PO DAILY Requip (Ropinirole) 3 Mg Tab 9 Mg PO HS Renagel (Sevelamer HCl) 800 Mg Tab 800 Mg PO TID Drisdol (Ergocalciferol) 50,000 Unit Cap 50,000 Units PO Q7D Dapsone 100 Mg Tab 100 Mg PO WEEKLY Cardura (Doxazosin Mesylate) 4 Mg Tab 4 Mg PO BID Gabapentin 300 Mg Cap 300 Mg PO HS Hydralazine (Hydralazine HCl) 100 Mg Tab 100 Mg PO TID Take with meals Metoprolol Tartrate 100 Mg Tab 100 Mg PO BID Myfortic (Mycophenolate Sodium) 360 Mg Tab 360 Mg PO BID Pantoprazole (Pantoprazole Sodium) 40 Mg Tab 40 Mg PO DAILY Prednisone 5 Mg Tab 5 Mg PO DAILY @ 0800 Zocor (Simvastatin) 10 Mg Tab 10 Mg PO HS Valganciclovir 450 Mg Tab 450 Mg PO MOWEFR Tylenol-Codeine #3 (Acetaminophen-Codeine) 300-30 mg Tab 1-2 Tab PO Q4-6H PRN Clonidine (Clonidine HCl) 0.3 Mg Tab 0.3 Mg PO TID Active Ordered Medications Current Medications Medications (Trade) Dose Ordered Sig/Rukhsana Route Start Time Stop Time Status Last Admin (NS Flush) 2 ml UNSCH PRN IVF 07/20/16 02:00 IV Flush 2 ml 2 ml UNSCH PRN IVF 07/20/16 02:00 (NS 1000 ml Inj) 1,000 ml @ 0 mls/hr Q0M PRN IV 07/20/16 04:06 07/20/16 05:38 Heparin Sodium (Porcine) 8000 units 8,000 units UNSCH PRN IVF 07/20/16 04:15 07/20/16 05:39 Sodium Chloride 1,000 ml @ 200 mls/hr Q5H PRN IV 07/20/16 04:06 07/20/16 05:38 (NS 1000 ml Inj) 1,000 ml @ 0 mls/hr Q0M PRN IV 07/20/16 04:06 (Mannitol Inj) 12.5 gm UNSCH PRN IV 07/20/16 04:15 (Albumin 25% Inj) 25 gm UNSCH PRN IV 07/20/16 04:15 (NS Flush) 5 ml UNSCH PRN IVF 07/20/16 04:15 (Zofran Inj) 4 mg UNSCH PRN IV 07/20/16 04:15 (Tylenol) 650 mg UNSCH PRN PO 07/20/16 04:15 (Benadryl) 25 mg UNSCH PRN PO 07/20/16 04:15 (Nitrostat Sl) 0.4 mg UNSCH PRN SL 07/20/16 04:15 (Catapres) 0.1 mg UNSCH PRN PO 07/20/16 04:15 (Epogen Inj) 4,000 units UNSCH PRN IV 07/20/16 04:15 07/20/16 05:39 (Gelfoam 12 Mm/7 Mm Top) 1 foam UNSCH PRN TOP 07/20/16 04:15 07/20/16 05:38 (Protonix Inj) 40 mg DAILY IV 07/20/16 09:00 07/20/16 09:18 (Heparin Inj) 5,000 units Q12H SQ 07/20/16 04:45 Miscellaneous Information 1 Q361D XX 07/20/16 04:45 (Chlorhexidine 2% Cloth) 3 pack Taper DAILY@04 TOP 07/21/16 04:00 07/17/17 03:59 (Chlorhexidine 2% Cloth) 3 pack UNSCH PRN TOP 07/20/16 04:45 (Ecotrin Ec) 81 mg DAILY PO 07/20/16 09:00 07/20/16 09:20 (Catapres) 0.3 mg TID PO 07/20/16 09:00 07/20/16 09:19 (Cardura) 4 mg BID PO 07/20/16 09:00 07/20/16 09:19 (Apresoline) 100 mg TID PO 07/20/16 09:00 07/20/16 09:19 (Lopressor) 100 mg BID PO 07/20/16 09:00 07/20/16 09:20 (Theragran M Tab) 1 tab DAILY PO 07/20/16 09:00 07/20/16 09:20 (Lyrica) 75 mg DAILY PO 07/20/16 09:00 (Requip) 9 mg HS PO 07/20/16 21:00 (Renvela) 800 mg TID PO 07/20/16 09:00 07/20/16 09:28 (Pravachol) 20 mg HS PO 07/20/16 21:00 (D50w (Vial) Inj) 25 ml UNSCH PRN IV PUSH 07/20/16 05:30 (Glucagon Inj) 1 mg UNSCH PRN OTHER 07/20/16 05:30 (NovoLIN R SUPPLEMENTAL SCALE) 1 Q6H SQ 07/20/16 05:30 Family History Noncontributory Social History Smokes cigarettes half pack per day, denies alcohol or drug use Physical Exam Vital Signs Vital Signs Date Time Temp Pulse Resp B/P Pulse Ox O2 Delivery O2 Flow Rate FiO2 07/20/16 09:35 96 20 197/93 97 Nasal Cannula 2 07/20/16 09:00 96 Nasal Cannula 2 07/20/16 09:00 97 20 195/92 97 Nasal Cannula 2 07/20/16 08:18 100 50 07/20/16 07:05 88 26 182/88 100 BiPAP 50 07/20/16 06:17 83 26 171/74 96 BiPAP 50 07/20/16 05:47 83 26 190/91 95 BiPAP 50 07/20/16 05:30 84 26 181/81 95 BiPAP 50 07/20/16 05:11 86 26 180/88 95 BiPAP 50 07/20/16 04:00 100 50 07/20/16 04:00 87 26 172/87 100 BiPAP 50 07/20/16 03:30 94 28 185/100 100 BiPAP 100 07/20/16 03:15 96 26 189/103 100 BiPAP 100 07/20/16 03:00 104 26 202/114 100 BiPAP 100 07/20/16 02:45 104 26 210/126 100 BiPAP 100 07/20/16 02:30 112 28 224/131 100 BiPAP 100 07/20/16 02:17 98 100 07/20/16 02:15 100 BiPAP 100 07/20/16 02:15 114 28 247/140 100 BiPAP 100 07/20/16 02:11 128 28 93 Non-Rebreather 15 07/20/16 02:00 94 Non-Rebreather 15 07/20/16 01:50 98.6 130 30 256/133 76 07/20/16 01:50 91 Non-Rebreather 15 Physical Exam GENERAL: Well-nourished, well-developed patient. SKIN: Warm and dry. HEAD: Normocephalic. EYES: No scleral icterus. No injection or drainage. NECK: Supple, trachea midline. No JVD or lymphadenopathy. CARDIOVASCULAR: Regular rate and rhythm without murmurs, gallops, or rubs. RESPIRATORY: Breath sounds equal bilaterally. No accessory muscle use. GASTROINTESTINAL: Abdomen soft, non-tender, nondistended. EXTREMITIES: No cyanosis, or edema. NEUROLOGICAL: Awake, alert, and oriented x 3. Non-focal. Laboratory Laboratory Tests Test 07/20/16 07/20/16 07/20/16 02:15 03:48 05:10 White Blood Count 17.6 Red Blood Count 3.74 Hemoglobin 10.4 Hematocrit 33.7 Mean Corpuscular Volume 90.1 Mean Corpuscular Hemoglobin 27.8 Mean Corpuscular Hemoglobin 30.8 Concent Red Cell Distribution Width 20.6 Platelet Count 329 Mean Platelet Volume 9.5 Neutrophils (%) (Auto) 77.0 Lymphocytes (%) (Auto) 5.1 Monocytes (%) (Auto) 11.4 Eosinophils (%) (Auto) 5.0 Basophils (%) (Auto) 1.5 Neutrophils # (Auto) 13.5 Lymphocytes # (Auto) 0.9 Monocytes # (Auto) 2.0 Eosinophils # (Auto) 0.9 Basophils # (Auto) 0.3 CBC Comment DIFF FINAL Differential Comment Prothrombin Time 10.8 Prothromb Time International 1.0 Ratio Activated Partial 27.6 Thromboplast Time Sodium Level 137 Potassium Level 5.9 Chloride Level 100 Carbon Dioxide Level 24.1 Anion Gap 13 Blood Urea Nitrogen 55 Creatinine 6.97 Estimat Glomerular Filtration 9 Rate Random Glucose 358 Lactic Acid Level 2.8 1.2 Calcium Level 8.7 Magnesium Level 2.4 Total Bilirubin 0.4 Aspartate Amino Transf 25 (AST/SGOT) Alanine Aminotransferase 26 (ALT/SGPT) Alkaline Phosphatase 207 Total Creatine Kinase 82 Troponin I 0.02 B-Type Natriuretic Peptide 3767 Total Protein 7.0 Albumin 3.4 Blood Gas Puncture Site LT RADIAL Blood Gas Patient Temperature 98.6 Blood Gas HCO3 21 Blood Gas Base Excess -3.8 Blood Gas Oxygen Saturation 94 Arterial Blood pH 7.35 Arterial Blood Partial 39 Pressure CO2 Arterial Blood Partial 314 Pressure O2 Arterial Blood Oxygen Content 13.0 Arterial Blood 4.0 Carboxyhemoglobin Arterial Blood Methemoglobin 2.0 Blood Gas Hemoglobin 9.3 Oxygen Delivery Device BiPAP Blood Gas Ventilator Setting IPAP12/EPAP5 Blood Gas Inspired Oxygen 100 Date/Time Procedure Status Source Growth 07/20/16 02:20 Aerobic Blood Culture Received Blood Peripheral Pending 07/20/16 02:20 Anaerobic Blood Culture Received Blood Peripheral Pending Result Diagram: 07/20/165 07/20/16214 Imaging Last Impressions Chest X-Ray 07/20/16 0147 Signed Impressions: Service Date/Time: Wednesday, July 20, 2016 02:06 - CONCLUSION: Diffuse bilateral interstitial pulmonary infiltrates. This can be seen with interstitial pulmonary edema versus pneumonia. Hi Persaud MD Assessment and Plan Problem List: (1) ESRD (end stage renal disease) on dialysis Plan: Patient received emergent hemodialysis on 6 L were removed he's feeling better now, I emphasized on showing up on the appointments and staying for the entire treatment, he has restless legs and is on high-dose of ropinirole and also Ativan 2 mg with hemodialysis was given he states it works for a while but then he gets the all anxious and cannot stay for the entire treatment. Patient admitted to for further evaluation. (2) Flash pulmonary edema Plan: Likely due to hypertensive emergency and signing off early from his prescribed time of hemodialysis. (3) Hypertensive emergency Plan: Blood pressure is still high resume outpatient medication, add nifedipine SR 60 mg once a day and observe for improvement (4) History of simultaneous kidney and pancreas transplant Plan: It appears his blood sugars have been elevated the indicating pancreatic transplant failure as well and he may need insulin Resume Prograf and Myfortic possible transfer him to [facility] in [place] as it appears pancreatic transplant is failing (5) Diabetes Plan: Monitor blood glucose Oxana Salas MD Jul 20, 2016 09:54
[2016-07-20 10:13] LABS: BLOOD, URINE NEG (NEG); COMMENT (UR) CATH-CULT NOT IND; CULTURE IF INDICATED CATH CULTURE NOT IND; GLUCOSE,URINE 1000 mg/dL (NEG); KETONE, URINE TRACE mg/dL (NEG); MUCUS URINE FEW /lpf (OCC); NITRITE,URINE NEG (NEG); PH, URINE 7.5 (5.0-8.5); URINE COLOR YELLOW (YELLW/STRAW)
[2016-07-20] MEDS ORDERED: MYCOPHENOLATE MOFETIL 500 MG TAB PO SCH ×2 (10:15→18:00)
[2016-07-20] MEDS ORDERED: INSULIN ASPART SUPPLEMENTAL SCALE SQ SCH (11:00)
--- NOTE | 2016-07-20 11:03 | MH ---
cc: RAÚL NELSON DATE OF ADMISSION: 07/20/2016 ADMITTING DIAGNOSIS: 07/20/2016 DATE OF : 1970. HISTORY OF PRESENT ILLNESS: The patient is a 46-year-old male with past medical history of end-stage renal disease on hemodialysis Tuesday, , Tuesday, diabetes mellitus, status post pancreatic and renal transplant in September 2014. However, the patient had failed renal transplant and was removed history of gastroesophageal reflux disease restless leg syndrome and hyperlipidemia. He presented to [facility] ED with a history of shortness of breath in addition the patient reports productive cough and congestion. His last hemodialysis on Tuesday, however the left half an hour. Early. The patient has history of noncompliance. On arrival to the emergency department he was hypertensive with blood pressure of 256/133, tachypneic and tachycardiac. He was placed on a BiPap 12 over five with 100% FIO2 and ABG showed pH of 7.35, CO2 39, pAO2 of 314, bicarb 21, saturation of 94%. His FIO2 was weaned down to 50%. Chest x-ray In the emergency room showed a diffuse bilateral interstitial pulmonary infiltrates. Dr. Salas from nephrology service has been contacted by the emergency department to start emergent hemodialysis. The patient was placed on nitro drip in the emergency room in addition he was given bronchodilator treatment and Solu-Medrol 125 mg IV push. His laboratory data showed a BUN of 55 with creatinine of 6.97 and an potassium of 5.9. B-type natriuretic peptide measured at 3767 and lactic acid level of 2.8. The patient was also was found to have leukocytosis with a WBC of 17.6, however he is afebrile. The patient was recently discharged from [place] after he was admitted back on June 30 with similar presentation and at that time he was intubated for respiratory failure. The patient denies any nausea, vomiting or abdominal pain in addition he denies any chest pain, orthopnea, paroxysmal nocturnal dyspnea or edema of lower extremities. PAST MEDICAL HISTORY: 1. Past medical history significant for end-stage renal disease on hemodialysis Tuesday, , Tuesday. 2. Diabetes mellitus 3. Chronic obstructive pulmonary disease 4. Hypertension 5. Restless leg syndrome 6. gastroesophageal reflux disease 7. Hyperlipidemia. PAST SURGICAL HISTORY 1. Previous pancreatic and renal transplant in September 2014. However, transplanted kidney was removed later. 2. 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 ALLERGIES NO KNOWN DRUG ALLERGIES. MEDICATIONS: Reported medications 1. Lyrica 2. Multivitamins 3. Aspirin 4. Requip 5. 6. Gabapentin 7. Cardura 8. hydralazine 9. Lopressor 10. mycophenolate 11. Protonix 12. prednisone 13. Zocor 14. clonidine. REVIEW OF SYSTEMS As per history of present illness, the rest of the review of systems unremarkable. PHYSICAL EXAMINATION: IN GENERAL: A 46-year-old male lying in bed on BiPap in mild respiratory distress. VITAL SIGNS: Temperature 98.6, pulse of 86, respiratory rate of 26, blood pressure initially was 256/133 on arrival, currently 178/85, saturation 95%. HEAD, EYES, EARS, NOSE, AND THROAT: Atraumatic, normocephalic pupil equal to light and accommodation. Extraocular muscles intact. Conjunctivae pink. Nonicteric sclerae. Oral mucosa within normal. NECK: Supple. No JVD, adenopathy or thyromegaly. Trachea midline. CARDIOVASCULAR SYSTEM: Regular rate and rhythm. Normal S1-S2. No murmurs, rubs or gallops noted. PULMONARY: Pulmonary exam bilateral equal entry with coarse breath sounds and crackles. ABDOMEN: Soft, nontender, no distension. Positive bowel sounds. EXTREMITIES: No cyanosis, edema, no focal sensory deficit. LABORATORY DATA Sodium of 137, potassium 5.9, chloride 100, CO2 24, BUN 55, creatinine 6.97, glucose 358, lactic acid 2.8, AST 25, ALT 26, alk phos 207, B-type natriuretic peptide 3767, WBC 17.6, hemoglobin 10.4, hematocrit 33, platelet count of 329, INR 10.4, INR one, PT 10.8, PTT 27.6. Chest x-ray Showed diffuse bilateral pulmonary infiltrates compatible with pulmonary edema. IMPRESSION 1. Acute respiratory failure. 2. Pulmonary edema. 3. Hypertensive emergency. 4. End-stage renal disease on hemodialysis 5. Leukocytosis 6. Hyperglycemia with underlying history of diabetes mellitus. 7. Mild lactic acidemia likely secondary to hypoxemia. 8. Insulin dependent diabetes mellitus, status post pancreatic and renal transplant. 9. Status post renal transplant and removal. 10. Anemia of chronic disease. 11. Restless leg syndrome. 12. History secondary hyperthyroidism. RECOMMENDATIONS 1. Monitor neuro status closely and avoid sedatives. 2. Continue with Lyrica 75 mg p.o. daily. in addition to Requip 9 mg p.o. q. q.h.s. for his restless X syndrome. 3. Wean down oxygen as tolerated and maintain sats above 92%. 4. Bronchodilators in the form of DuoNeb q. 4+ q. two p.r.n. for shortness of breath. 5. Noninvasive positive pressure ventilation p.r.n. for respiratory distress. 6. Wean off nitro drip. Monitor heart rate and blood pressure closely and maintain MAP greater 65 mmHg. Resume his home antihypertensive meds which include clonidine 0.3 mg n.p.o. t.i.d., Cardura 4 mg p.o. b.i.d., hydralazine 100 mg p.o. t.i.d. metoprolol 100 mg p.o. b.i.d. 7. Monitor renal function and electrolytes closely. Dr. Salas has been notified for emergent hemodialysis. The patient is on dialysis Tuesday, and Tuesday. \ 8. I will hold off on antibiotics at this time as there is no signs of infectious process. Will obtain urinalysis with culture if indicated and a sputum culture. His leukocytosis, possibly stress related. Will culture for any fevers. 9. The patient is on a Epogen 4000 units with dialysis. 10. Monitor CBC and continue with multivitamins 1 tablet n.p.o. daily. 11. Immunosuppressants medications will defer to the nephrology. Will obtain a Prograf level. 12. Placed on sliding scale insulin. Accu-Chek q. 6-hour for glycemic control. 13. Keep n.p.o. for now until respiratory status improves and place on Protonix 40 mg IV daily for GI prophylaxis. 14. GI prophylaxis with Protonix 40 mg daily and DVT prophylaxis with SCDs and heparin Subcu. 15. Critical care time 50 minutes excluding procedures. Thank you MD ELAYNE Carballo/jovan /5:13 AM /10:33 AM
--- NOTE | 2016-07-20 11:05 | HHI.DS ---
Discharge Summary Admission Date Jul 20, 2016 at 04:39 Admitting Diagnosis Pulmonary edema, hypertensive emergency Procedures Hemodialysis Brief History Presented with respiratory distress and fluid overload. Required BiPAP NIV. Four liters removed in dialysis and patient is breathing comfortably on 2 liters O2. CBC/BMP: 07/20/16 0215 07/20/16 0215 Significant Findings Laboratory Tests Test 07/20/16 07/20/16 07/20/16 02:15 03:48 09:40 White Blood Count 17.6 TH/MM3 (4.0-11.0) Red Blood Count 3.74 MIL/MM3 (4.50-5.90) Hemoglobin 10.4 GM/DL (13.0-17.0) Hematocrit 33.7 % (39.0-51.0) Mean Corpuscular Hemoglobin 30.8 % Concent (32.0-36.0) Red Cell Distribution Width 20.6 % (11.6-17.2) Neutrophils (%) (Auto) 77.0 % (16.0-70.0) Lymphocytes (%) (Auto) 5.1 % (9.0-44.0) Monocytes (%) (Auto) 11.4 % (0.0-8.0) Eosinophils (%) (Auto) 5.0 % (0.0-4.0) Neutrophils # (Auto) 13.5 TH/MM3 (1.8-7.7) Lymphocytes # (Auto) 0.9 TH/MM3 (1.0-4.8) Monocytes # (Auto) 2.0 TH/MM3 (0-0.9) Eosinophils # (Auto) 0.9 TH/MM3 (0-0.4) Basophils # (Auto) 0.3 TH/MM3 (0-0.2) Potassium Level 5.9 MEQ/L (3.5-5.1) Blood Urea Nitrogen 55 MG/DL (7-18) Creatinine 6.97 MG/DL (0.60-1.30) Estimat Glomerular Filtration 9 ML/MIN (>89) Rate Random Glucose 358 MG/DL (74-106) Lactic Acid Level 2.8 mmol/L (0.4-2.0) Alkaline Phosphatase 207 U/L (45-117) B-Type Natriuretic Peptide 3767 PG/ML (0-100) Blood Gas HCO3 21 mmol/L (22-26) Blood Gas Base Excess -3.8 mmol/L (-2-2) Arterial Blood pH 7.35 (7.380-7.420) Arterial Blood Partial 314 mmHG Pressure O2 (61-120) Blood Gas Hemoglobin 9.3 G/DL (12.0-16.0) Urine Protein 300 mg/dL (NEG-TRACE) Urine Glucose (UA) 1000 mg/dL (NEG) Urine Ketones TRACE mg/dL (NEG) Urine Mucus FEW /lpf (OCC) PE at Discharge Breathing comfortably. No SOB or conversational dyspnea. Hospital Course Patient felt that his meal did not come fast enough when he ordered it and signed out AMA. Pt Condition on Discharge: Stable Jose C Magaña MD Jul 20, 2016 11:05
[2016-07-20] MEDS ORDERED: MYCOPHENOLATE SODIUM 360 MG DELAYED RELEASE TAB PO ONE (12:00)
[2016-07-20] MEDS ORDERED: TACROLIMUS 1 MG CAP PO ONE (12:00)
[2016-07-20] MEDS ORDERED: TACROLIMUS 0.5 MG CAP PO ONE (12:00)
[2016-07-20] MEDS ORDERED: NIFEdipine 60 MG SUSTAINED RELEASE TAB PO ONE (12:00)
--- NOTE | 2016-07-20 17:53 | EKG ---
Date Performed: 07/20/2016 Time Performed: 02:16:33 PTAGE: 46 years EKG: SINUS TACHYCARDIA BORDERLINE LEFT AXIS DEVIATION ST ELEVATION, PROBABLY EARLY REPOLARIZATIO N MODERATE ST DEPRESSION ABNORMAL QRS-T ANGLE When compared to previous tracing, the patient is now i n a sinus Tachycardia. ABNORMAL ECG PREVIOUS TRACING : 07/01/2016 07.29 DOCTOR: Chitra Tapia Interpretating Date/Time 07/20/2016 17:51:51
[2016-07-20] MEDS ORDERED: MYCOPHENOLATE SODIUM 360 MG DELAYED RELEASE TAB PO SCH (18:00)
[2016-07-20] MEDS ORDERED: TACROLIMUS 1 MG CAP PO SCH ×2 (18:00)
[2016-07-20] MEDS ORDERED: TACROLIMUS 0.5 MG CAP PO SCH (18:00)
[2016-07-20] MEDS ORDERED: PRAVASTATIN SOD 20 MG TAB PO SCH (21:00)
[2016-07-21] MEDS ORDERED: CHLORHEXIDINE GLUCONATE 2 % 1 PACK (2 CLOTHS) TOP SCH (04:00)
[2016-07-21] MEDS ORDERED: NIFEdipine 60 MG SUSTAINED RELEASE TAB PO SCH (09:00)
== END 2016-07-20 13:07 | disposition left against medical advice (07) | DRG 189 ==
LOC: NEPC 01:39 → NEDA 04:39 → N03A 09:54
PROVIDERS: ADMIT Internal Medicine Critical Care Medicine; ATTEND Internal Medicine Critical Care Medicine
PROC: 5A1D00Z (ICD-10-PCS; principal; 2016-07-20)
PROC: 5A09357 Assistance with Respiratory Ventilation, Less than 24 Consecutive Hours, Continuous Positive Airway Pressure (ICD-10-PCS; 2016-07-20)
DX: J96.01 Acute respiratory failure with hypoxia (principal); J81.0 Acute pulmonary edema; T86.890 Other transplanted tissue rejection; E87.2 Acidosis; N18.6 End stage renal disease; I12.0 Hypertensive chronic kidney disease with stage 5 chronic kidney disease or end stage renal disease; I16.1 Hypertensive emergency; E87.70 Fluid overload, unspecified; E11.22 Type 2 diabetes mellitus with diabetic chronic kidney disease; J44.9 Chronic obstructive pulmonary disease, unspecified; K21.9 Gastro-esophageal reflux disease without esophagitis; Z99.2 Dependence on renal dialysis; G25.81 Restless legs syndrome; E78.5 Hyperlipidemia, unspecified; D72.829 Elevated white blood cell count, unspecified; E11.65 Type 2 diabetes mellitus with hyperglycemia; F17.210 Nicotine dependence, cigarettes, uncomplicated; Z91.19 Patient's noncompliance with other medical treatment and regimen; Y83.0 Surgical operation with transplant of whole organ as the cause of abnormal reaction of the patient, or of later complication, without mention of misadventure at the time of the procedure
CPT/HCPCS: 36600; 71010; 80053; 80197; 81001; 82550; 82805; 83605; 83735; 83880; 84484; 85025; 85610; 85730; 87040; 87641; 90935; 93005; 94002; 94640; 94664; 96365; 96366; 96374; 96375; C9113; J1644; J2930; J7030; Q4081